=== PATIENT | female | born 1970 | race Caucasian/White ===

== ENCOUNTER → 2016-08-23 | Outpatient (CLI) | payer MEDICARE, OTHER | LOC: RAD 09:40 | PROVIDERS: ATTEND Orthopaedic Surgery Hand Surgery | DX: M54.12 Radiculopathy, cervical region (principal) | CPT/HCPCS: 72141 ==

== ENCOUNTER 2016-12-05 09:23 | Emergency (ER) | payer MEDICARE, OTHER ==
[2016-12-05 09:41] VITALS: BP 137/83
[2016-12-05] MEDS ORDERED: IPRATROPIUM/ALBUTEROL 0.5-2.5 MG/3 ML AMPUL NEB ONE (09:57)
--- NOTE | 2016-12-05 09:58 | ER Document Report ---
HPI - HPI Patient complains to provider of: sore throat, congestion Onset: Yesterday Onset/Duration: Gradual Quality of pain: Achy Pain Level: 2 Context: Presents complaining of sore throat, sinus pressure, and ear pain that started yesterday. Patient does report recent sick contacts in the household. Patient denies any fever. Associated Symptoms: Body/muscle aches, Nonproductive cough, Earache, Sinus pain /drainage, Sore throat. denies: Diarrhea, Fever Exacerbated by: Denies Relieved by: Denies Similar symptoms previously: Yes Recently seen / treated by doctor: No - ROS ROS below otherwise negative: Yes Systems Reviewed and Negative: Yes All other systems reviewed and negative - CONSTITUTIONAL Constitutional: REPORTS: Chills. DENIES: Fever - EENT EENT: REPORTS: Sore Throat, Ear Pain, Nasal Drainage-Clear, Congestion - NEURO Neurology: DENIES: Headache - RESPIRATORY Respiratory: REPORTS: Coughing. DENIES: Trouble Breathing - GASTROINTESTINAL Gastrointestinal: DENIES: Nausea - REPRODUCTIVE Reproductive: DENIES: : - DERM Skin Color: Normal, [place] Past Medical History - General Information source: Patient - Social History Smoking Status: Current Every Day Smoker Frequency of alcohol use: None Drug Abuse: None Occupation: none Lives with: Family Family History: Arthritis, DM, Hyperlipidemia Patient has suicidal ideation: No Patient has homicidal ideation: No - Past Medical History Cardiac Medical History: Reports: Hx Hypercholesterolemia Denies: Hx Heart Attack, Hx Hypertension Pulmonary Medical History: Reports: Hx Bronchitis, Hx Pneumonia Denies: Hx Asthma Neurological Medical History: Denies: Hx Cerebrovascular Accident, Hx Seizures Renal/ Medical History: Denies: Hx Peritoneal Dialysis GI Medical History: Denies: Hx Hepatitis, Hx Hiatal Hernia, Hx Ulcer Musculoskeltal Medical History: Reports Hx Arthritis, Reports Hx Musculoskeletal Deformity, Reports Hx Musculoskeletal Trauma Psychiatric Medical History: Reports: Hx Anxiety, Hx Depression, Hx Post Traumatic Stress Disorder Traumatic Medical History: Reports: Hx Fractures Infectious Medical History: Denies: Hx Hepatitis Past Surgical History: Reports: Hx Adenoidectomy, Hx Appendectomy, Hx Cholecystectomy, Hx Gynecologic Surgery - lap/ 7 d&c, hysterectomy, Hx Hysterectomy, Hx Orthopedic Surgery, Hx Tonsillectomy. Denies: Hx Mastectomy, Hx Open Heart Surgery, Hx Pacemaker - Immunizations Immunizations up to date: Yes Hx Diphtheria, Pertussis, Tetanus Vaccination: Yes Vertical Provider Document - CONSTITUTIONAL Agree With Documented VS: Yes General Appearance: WD/WN, No Apparent Distress - INFECTION CONTROL TRAVEL OUTSIDE OF THE [place] IN LAST 30 DAYS: No - HEENT HEENT: Atraumatic, Normal ENT Exam, Pharyngeal Tenderness. negative: Pharyngeal Exudate, Pharyngeal Erythema - NECK Neck: Normal Inspection, Supple. negative: Lymphadenopathy-Left, Lymphadenopathy-Right - RESPIRATORY Respiratory: No Respiratory Distress, Chest Non-Tender, Wheezing - faint scattered O2 Sat by Pulse Oximetry: 94 - CARDIOVASCULAR Cardiovascular: Regular Rate, Regular Rhythm, No Murmur - BACK Back: Normal Inspection - MUSCULOSKELETAL/EXTREMETIES Musculoskeletal/Extremeties: MAEW - NEURO Level of Consciousness: Awake, Alert, Appropriate Motor/Sensory: No Motor Deficit - DERM Integumentary: Warm, Dry, No Rash Course - Re-evaluation Re-evalutation: 12/05/16 10:49 wheezing resolved, pt with good air movement bilat. - Vital Signs Vital signs: Temp Pulse Resp BP Pulse Ox 98.4 F 90 21 H 137/83 H 94 12/05/16 09:31 12/05/16 09:31 12/05/16 09:31 12/05/16 09:31 12/05/16 09:31 Discharge - Discharge Clinical Impression: Sore throat, Wheezing Upper respiratory infection Qualifiers: URI type: unspecified URI Qualified Code(s): J06.9 - Acute upper respiratory infection, unspecified Condition: Stable Disposition: HOME, SELF-CARE Instructions: Upper Respiratory Illness ([facility]), Acetaminophen, Sore Throat ([facility]) , Inhaled Bronchodilators ([facility]) Additional Instructions: Return immediately for any new or worsening symptoms Followup with your primary care provider, call tomorrow to make a followup appointment Throat culture is pending, we will call if you need any different treatment use saline nasal spray over the counter to help with congestion symptoms may take mucinex over the counter as directed Prescriptions: Albuterol Sulfate [Ventolin Hfa] 2 puff IH Q4HP PRN #17 gm PRN Reason: Benzonatate [Tessalon Perle 100 mg Capsule] 100 mg PO Q8HP PRN #20 cap PRN Reason:
== END 2016-12-05 10:55 | disposition home or self-care (01) ==
LOC: ER 09:23
DX: J02.9 Acute pharyngitis, unspecified (principal); J06.9 Acute upper respiratory infection, unspecified; H92.09 Otalgia, unspecified ear; M79.1 Myalgia; R05 Cough; R06.2 Wheezing; J34.89 Other specified disorders of nose and nasal sinuses; R68.83 Chills (without fever); F17.200 Nicotine dependence, unspecified, uncomplicated; Z87.01 Personal history of pneumonia (recurrent)
CPT/HCPCS: 94640; 99283; 87070; 87880; A9270; J7620

== ENCOUNTER 2016-12-12 12:53 | Emergency (ER) | payer MEDICARE, OTHER ==
--- NOTE | 2016-12-12 13:42 | ER Document Report ---
ED Medical Screen (RME) - General Chief Complaint: Chest Pain Stated Complaint: CHEST PAIN Time Seen by Provider: 12/12/16 13:39 Notes: Patient says that she has been experiencing pain in the center of her anterior chest since last night. Today, she is having that pain as well as pain in her right nondenominational. She has been feeling lightheaded. Patient was diagnosed with sinus infection and an ear infection and a tooth infection and put on clindamycin 2 days ago. Denies nausea or vomiting has had some shortness of breath. No history of blood clots. PMH: Appendectomy, hysterectomy, cholecystectomy, various orthopedic surgeries. Patient is a cigarette smoker. TRAVEL OUTSIDE OF THE [place] IN LAST 30 DAYS: No - Related Data Allergies/Adverse Reactions: doxycycline [Doxycycline] Allergy (Severe, Verified 12/12/16 13:05) Anaphylaxis prednisone [Prednisone] Allergy (Severe, Verified 12/12/16 13:05) Pressure in chest, turn red & feel on fire from inside tetracycline [Tetracycline] Allergy (Severe, Verified 12/12/16 13:05) Anaphylaxis Past Medical History - Social History Chew tobacco use (# tins/day): Yes - 1/2 ppd Frequency of alcohol use: None Drug Abuse: None - Past Medical History Cardiac Medical History: Reports: Hx Hypercholesterolemia Denies: Hx Heart Attack, Hx Hypertension Pulmonary Medical History: Reports: Hx Bronchitis, Hx Pneumonia Denies: Hx Asthma Neurological Medical History: Denies: Hx Cerebrovascular Accident, Hx Seizures Renal/ Medical History: Denies: Hx Peritoneal Dialysis GI Medical History: Denies: Hx Hepatitis, Hx Hiatal Hernia, Hx Ulcer Musculoskeltal Medical History: Reports Hx Arthritis, Reports Hx Musculoskeletal Deformity, Reports Hx Musculoskeletal Trauma Psychiatric Medical History: Reports: Hx Anxiety, Hx Bipolar Disorder, Hx Depression, Hx Post Traumatic Stress Disorder Traumatic Medical History: Reports: Hx Fractures Infectious Medical History: Denies: Hx Hepatitis Past Surgical History: Reports: Hx Adenoidectomy, Hx Appendectomy, Hx Cholecystectomy, Hx Gynecologic Surgery - lap/ 7 d&c, hysterectomy, Hx Hysterectomy, Hx Orthopedic Surgery - carpal tunnel bilateral, Hx Tonsillectomy. Denies: Hx Mastectomy, Hx Open Heart Surgery, Hx Pacemaker - Immunizations Immunizations up to date: Yes Hx Diphtheria, Pertussis, Tetanus Vaccination: Yes Physical Exam - Vital signs Vitals: Temp Pulse Resp BP Pulse Ox 99.4 F 93 16 134/83 H 95 12/12/16 13:05 12/12/16 13:05 12/12/16 13:05 12/12/16 13:05 12/12/16 13:05 Course - Vital Signs Vital signs: Temp Pulse Resp BP Pulse Ox 99.4 F 93 16 134/83 H 95 12/12/16 13:05 12/12/16 13:05 12/12/16 13:05 12/12/16 13:05 12/12/16 13:05
[2016-12-12 14:27] LABS: APPEARANCE,URINE CLEAR; BILIRUBIN,URINE NEGATIVE (NEGATIVE); GLUCOSE, URINE NEGATIVE (NEGATIVE); KETONES,URINE NEGATIVE (NEGATIVE); LEUKOCYTE ESTERASE,URINE NEGATIVE (NEGATIVE); NITRITE,URINE NEGATIVE (NEGATIVE); PROTEIN,URINE NEGATIVE (NEGATIVE); URINE SPECIFIC GRAVITY 1.003; UROBILINOGEN,URINE NEGATIVE mg/dL (<2.0)
--- NOTE | 2016-12-12 14:29 | RADIOLOGY REPORT (SQ) ---
EXAM DESCRIPTION: CHEST PA/LAT COMPLETED DATE/TIME: 12/12/2016 2:20 pm REASON FOR STUDY: Chest pain COMPARISON: 02/26/2014 EXAM PARAMETERS: NUMBER OF VIEWS: two views TECHNIQUE: Digital Frontal and Lateral radiographic views of the chest acquired. RADIATION DOSE: NA LIMITATIONS: none FINDINGS: LUNGS AND PLEURA: The interstitial markings are slightly more prominent on the current kristopher dy compared to the earlier 1. There is no focal pneumonia. There is no pleural effusion or pulmonar y mass. MEDIASTINUM AND HILAR STRUCTURES: No masses or contour abnormalities. HEART AND VASCULAR STRUCTURES: Heart normal size. No evidence for failure. BONES: No acute findings. HARDWARE: None in the chest. OTHER: No other significant finding. IMPRESSION: There are mild interstitial changes with no acute cardiopulmonary disease. TECHNICAL DOCUMENTATION: JOB ID: [id number] [employer]- All Rights Reserved
[2016-12-12 14:53] LABS: ABSOLUTE BASOPHILS # (AUTO) 0.1 10^3/uL (0.0-0.2); ABSOLUTE EOSINOPHILS # (AUTO) 0.1 10^3/uL (0.0-0.6); ABSOLUTE LYMPHOCYTES (AUTO) 2.7 10^3/uL (0.5-4.7); ABSOLUTE MONOCYTES (AUTO) 0.8 10^3/uL (0.1-1.4); ABSOLUTE NEUT (AUTO) 11.8 10^3/uL (1.7-8.2); BASOPHILS % (AUTO) 0.8 % (0-2); EOSINOPHILS % (AUTO) 0.5 % (0-6); HEMATOCRIT 37.8 % (36.0-47.0); HEMOGLOBIN 12.5 g/dL (12.0-15.5); HGB HCT DIFFERENCE -0.3; LYMPHOCYTES % (AUTO) 17.4 % (13-45); MEAN CORPUSCULAR HEMOGLOBIN 30.5 pg (27.0-33.4); MEAN CORPUSCULAR VOLUME 92 fl (80-97); MONOCYTES % (AUTO) 5.4 % (3-13); RED CELL DISTRIBUTION WIDTH 12.5 % (11.5-14.0); SEGMENTED NEUTROPHILS % (AUTO) 75.9 % (42-78); WHITE BLOOD COUNT 15.5 10^3/uL (4.0-10.5)
[2016-12-12 15:10] LABS: ALANINE AMINOTRANSFERASE 55 U/L (9-52); ALBUMIN 4.3 g/dL (3.5-5.0); ALKALINE PHOSPHATASE 157 U/L (38-126); ANION GAP 15 (5-19); ASPARTATE AMINO TRANSFERASE 48 U/L (14-36); BILIRUBIN,DIRECT 0.4 mg/dL (0.0-0.4); BILIRUBIN,TOTAL 0.6 mg/dL (0.2-1.3); BLOOD UREA NITROGEN 4 mg/dL (7-20); CALCIUM 9.3 mg/dL (8.4-10.2); CARBON DIOXIDE 26 mmol/L (22-30); CHLORIDE 100 mmol/L (98-107); CREATININE RESULT 0.66 mg/dL (0.52-1.25); GLUCOSE 114 mg/dL (75-110); POTASSIUM 3.5 mmol/L (3.6-5.0)
[2016-12-12 15:22] LABS: CREATINE KINASE MB 0.35 ng/mL (<4.55); TROPONIN I < 0.012 ng/mL
[2016-12-12] MEDS ORDERED: POTASSIUM CHLORIDE 20 MEQ/15 ML UDCUP PO ONE (15:25)
[2016-12-12] MEDS ORDERED: METOCLOPRAMIDE HCL ORAL SOLN 10 MG/10 ML UDCUP PO ONE (15:25)
[2016-12-12] MEDS ORDERED: MAG HYDROX/AL HYDROX/SIMETH SUSP 30 ML UDCUP PO ONE (15:25)
[2016-12-12] MEDS ORDERED: LIDOCAINE 2% VISCOUS SOLN 20 ML UDCUP PO ONE (15:25)
--- NOTE | 2016-12-12 15:25 | ER Document Report ---
ED General - General Chief Complaint: Chest Pain Stated Complaint: CHEST PAIN Time Seen by Provider: 12/12/16 13:39 Mode of Arrival: Ambulatory Information source: Patient Notes: This is a 46-year-old female with a history of anxiety, arthritis who is been treated for a sinus infection/ear infection/dental caries with clindamycin for the past 2 days. Patient presents to the emergency room with epigastric discomfort for the past day. She denies any diarrhea. She denies any exertional shortness of breath or exertional chest pain. The patient does smoke a half a pack of cigarettes a day TRAVEL OUTSIDE OF THE [place] IN LAST 30 DAYS: No - HPI Onset: Just prior to arrival Onset/Duration: Gradual Quality of pain: Dull Severity: Moderate Pain Level: 2 Associated symptoms: denies: Chest pain, Shortness of breath Exacerbated by: Denies Relieved by: Denies Similar symptoms previously: Yes Recently seen / treated by doctor: No - Related Data Allergies/Adverse Reactions: doxycycline [Doxycycline] Allergy (Severe, Verified 12/12/16 13:05) Anaphylaxis prednisone [Prednisone] Allergy (Severe, Verified 12/12/16 13:05) Pressure in chest, turn red & feel on fire from inside tetracycline [Tetracycline] Allergy (Severe, Verified 12/12/16 13:05) Anaphylaxis Past Medical History - General Information source: Patient - Social History Smoking Status: Current Every Day Smoker Cigarette use (# per day): No Chew tobacco use (# tins/day): Yes - 1/2 ppd Frequency of alcohol use: None Drug Abuse: None Lives with: Family Family History: Arthritis, DM, Hyperlipidemia Patient has suicidal ideation: No Patient has homicidal ideation: No - Past Medical History Cardiac Medical History: Reports: Hx Hypercholesterolemia Denies: Hx Heart Attack, Hx Hypertension Pulmonary Medical History: Reports: Hx Bronchitis, Hx Pneumonia Denies: Hx Asthma Neurological Medical History: Denies: Hx Cerebrovascular Accident, Hx Seizures Renal/ Medical History: Denies: Hx Peritoneal Dialysis GI Medical History: Denies: Hx Hepatitis, Hx Hiatal Hernia, Hx Ulcer Musculoskeltal Medical History: Reports Hx Arthritis, Reports Hx Musculoskeletal Deformity, Reports Hx Musculoskeletal Trauma Psychiatric Medical History: Reports: Hx Anxiety, Hx Bipolar Disorder, Hx Depression, Hx Post Traumatic Stress Disorder Traumatic Medical History: Reports: Hx Fractures Infectious Medical History: Denies: Hx Hepatitis Past Surgical History: Reports: Hx Adenoidectomy, Hx Appendectomy, Hx Cholecystectomy, Hx Gynecologic Surgery - lap/ 7 d&c, hysterectomy, Hx Hysterectomy, Hx Orthopedic Surgery - carpal tunnel bilateral, Hx Tonsillectomy. Denies: Hx Mastectomy, Hx Open Heart Surgery, Hx Pacemaker - Immunizations Immunizations up to date: Yes Hx Diphtheria, Pertussis, Tetanus Vaccination: Yes Review of Systems - Review of Systems Constitutional: denies: Chills, Fever EENT: No symptoms reported Cardiovascular: No symptoms reported Respiratory: No symptoms reported Gastrointestinal: See HPI Genitourinary: No symptoms reported Female Genitourinary: No symptoms reported Musculoskeletal: No symptoms reported Skin: No symptoms reported Hematologic/Lymphatic: No symptoms reported Neurological/Psychological: No symptoms reported Physical Exam - Vital signs Vitals: Temp Pulse Resp BP Pulse Ox 99.4 F 93 16 134/83 H 95 12/12/16 13:05 12/12/16 13:05 12/12/16 13:05 12/12/16 13:05 12/12/16 13:05 Notes: Physical exam: GENERAL: 6-year-old female, alert and oriented 3, no acute distress HEAD: Atraumatic, normocephalic. EYES: Pupils equal round and reactive to light, extraocular movements intact, sclera anicteric, conjunctiva are normal. ENT: TMs normal, nares patent, oropharynx clear without exudates. Moist mucous membranes. NECK: Normal range of motion, supple without lymphadenopathy or JVD. LUNGS: Breath sounds clear to auscultation bilaterally and equal. No wheezes rales or rhonchi. HEART: Regular rate and rhythm without murmurs, rubs or gallops. ABDOMEN: Soft, normoactive bowel sounds. No tenderness to palpation. No guarding, no rebound. No masses appreciated. EXTREMITIES: Normal range of motion, no pitting or edema. No clubbing or cyanosis. NEUROLOGICAL: Cranial nerves II through XII grossly intact. Normal speech, normal gait. PSYCH: Normal mood, normal affect. SKIN: Warm, Dry, normal turgor, no rashes or lesions noted. Course - Re-evaluation Re-evalutation: 12/12/16 16:08 Note: The patient has been very comfortable (she is on the phone every time I walk in the room). Patient's abdomen is soft and nontender. These are not consistent with cardiac issues. She was recently placed on clindamycin and it may be irritation of the esophagus from that. The x-ray looks clear. She does have mild elevated LFTs. She does not have a gallbladder. She is on some medicines that can affect the liver enzymes (meloxicam, amitriptyline and cetirizine). I have recommended follow-up with her primary care doctor (Dr. Brady) and I will give her a copy of today's labs. She will need repeat labs in the next month for the liver enzymes. She does not drink alcohol and has not been taking Tylenol 12/12/16 22:48 - Vital Signs Vital signs: Temp Pulse Resp BP Pulse Ox 99.4 F 93 23 H 131/92 H 100 12/12/16 13:05 12/12/16 13:05 12/12/16 16:01 12/12/16 16:01 12/12/16 16:01 - Laboratory Result Diagrams: 12/12/16 14:35 12/12/16 14:35 Laboratory results interpreted by me: 12/12/16 12/12/16 14:35 14:35 WBC 15.5 H Absolute Neutrophils 11.8 H Potassium 3.5 L BUN 4 L Glucose 114 H AST 48 H ALT 55 H Alkaline Phosphatase 157 H Lipase 20.0 L - Diagnostic Test Radiology reviewed: Image reviewed, Reports reviewed - X-ray shows no obvious infiltrates - EKG Interpretation by Me Rate: Normal Rhythm: NSR - PG shows normal sinus rhythm with a ventricular rate of [address]-T wave change. There is no old EKG to compare Discharge - Discharge Clinical Impression: Chest wall pain, Elevated liver enzymes Condition: Stable Disposition: HOME, SELF-CARE Additional Instructions: As we discussed, your chest x-ray and kidney tests look good. You do have a mild elevation in your white blood count which is most likely due to the sinus infection for which are getting clindamycin You also have a mild elevation in your liver enzymes which could be from medicines (specifically meloxicam, amitriptyline, cetirizine). Plan to follow-up with Dr. Brady next week and bring a copy of today's labs with you when you go. In the meantime, current medicines, return to the emergency room if he starts developing chest pain, shortness of breath or worsening discomfort or you feel like you getting worse Referrals: DELISA BRADY MD [Primary Care Provider] - Follow up in 3-5 days
[2016-12-12 16:21] VITALS: BP 131/92
--- NOTE | 2016-12-13 03:59 | EKG REPORT ---
SEVERITY:- BORDERLINE ECG - SINUS RHYTHM BORDERLINE T ABNORMALITIES, DIFFUSE LEADS : Confirmed by: Alisha Wise MD 13-Dec-2016 03:58:23
== END 2016-12-12 16:23 | disposition home or self-care (01) ==
LOC: ER 12:53
DX: R07.89 Other chest pain (principal); R74.8 Abnormal levels of other serum enzymes; J32.9 Chronic sinusitis, unspecified; H66.90 Otitis media, unspecified, unspecified ear; K02.9 Dental caries, unspecified; F17.210 Nicotine dependence, cigarettes, uncomplicated; Z88.8 Allergy status to other drugs, medicaments and biological substances; Z87.892 Personal history of anaphylaxis; Z88.1 Allergy status to other antibiotic agents
CPT/HCPCS: 93005; 99285; 36415; 82553; 83690; 85025; 80053; 81001; 84484; 71020; 93010; J3490; A9270 ×2

== ENCOUNTER → 2016-12-26 | Outpatient (CLI) | payer MEDICARE, OTHER ==
--- NOTE | 2016-12-26 11:45 | RADIOLOGY REPORT (SQ) ---
EXAM DESCRIPTION: MRI LT UPPER JOINT WITHOUT COMPLETED DATE/TIME: 12/26/2016 10:59 am REASON FOR STUDY: PAIN IN LEFT SHOULDER M25.512 PAIN IN LEFT SHOULDER COMPARISON: None. TECHNIQUE: Left shoulder images acquired and stored on PACS. Multiplanar imaging to include fat sens itive sequences such as T1, water sensitive sequences such as FST2/STIR, cartilage sensitive sequence s such as FSPD/gradient-echo sequences. LIMITATIONS: None. FINDINGS: BONE MARROW AND CORTEX: No worrisome bone lesions or marrow replacement. No occult fractur es. JOINT OR BURSAL EFFUSION: No significant joint or bursal fluid. No suggestion of loose bodies. GLENO-HUMERAL ARTICULATION: Normal articulation. No subluxation. No cystic change. No osteophytes or cartilage loss. ACROMION AND AC JOINT: Type 2. Mild AC joint arthropathy. ROTATOR CUFF AND INTERVAL: Partial thickness articular surface tear of the supraspinatus tendon. The re is a intrasubstance tear of the supraspinatus musculotendinous junction. No full-thickness tear i s identified. No rotator interval tear. No rotator interval thickening to suggest adhesive capsulitis. LABRUM AND BICEPS LABRAL COMPLEX: Increased signal in the biceps labral complex. Distal biceps in normal location in bicipital groove. REMAINDER OF LABRUM AND IGHL : No gross tear or paralabral cyst formation. Labral evaluation is less than optimal without joint distention. No thickening of IGHL to suggest adhesive capsulitis. PERIARTICULAR AND ADJACENT SOFT TISSUES: No masses or abnormal nodes. OTHER: No other significant finding. IMPRESSION: 1. Partial-thickness tears of the supraspinatus. 2. Suspected type 1 SLAP tear. 3. AC joint arthropathy. TECHNICAL DOCUMENTATION: JOB ID: [id number] [employer]- All Rights Reserved
== END ==
LOC: RAD 09:58
PROVIDERS: ATTEND Neurological Surgery
DX: M25.512 Pain in left shoulder (principal)

== ENCOUNTER 2017-03-21 10:47 | Day surgery (SDC) | payer MEDICARE, OTHER ==
[2017-03-14 09:21] LABS: ABSOLUTE EOSINOPHILS # (AUTO) 0.1 10^3/uL (0.0-0.6); ABSOLUTE LYMPHOCYTES (AUTO) 2.3 10^3/uL (0.5-4.7); ABSOLUTE MONOCYTES (AUTO) 0.6 10^3/uL (0.1-1.4); ABSOLUTE NEUT (AUTO) 9.1 10^3/uL (1.7-8.2); BASOPHILS % (AUTO) 0.4 % (0-2); EOSINOPHILS % (AUTO) 1.2 % (0-6); HEMATOCRIT 35.9 % (36.0-47.0); HEMOGLOBIN 12.3 g/dL (12.0-15.5); LYMPHOCYTES % (AUTO) 18.8 % (13-45); MEAN CORPUSCULAR HEMOGLOBIN 30.2 pg (27.0-33.4); MEAN CORPUSCULAR HGB CONC 34.4 g/dL (32.0-36.0); MEAN CORPUSCULAR VOLUME 88 fl (80-97); MONOCYTES % (AUTO) 4.8 % (3-13); RED BLOOD COUNT 4.08 10^6/uL (3.72-5.28); RED CELL DISTRIBUTION WIDTH 12.9 % (11.5-14.0); SEGMENTED NEUTROPHILS % (AUTO) 74.8 % (42-78); WHITE BLOOD COUNT 12.2 10^3/uL (4.0-10.5)
[2017-03-14 09:23] LABS: APPEARANCE,URINE CLEAR; BILIRUBIN,URINE NEGATIVE (NEGATIVE); GLUCOSE, URINE NEGATIVE (NEGATIVE); KETONES,URINE NEGATIVE (NEGATIVE); LEUKOCYTE ESTERASE,URINE NEGATIVE (NEGATIVE); NITRITE,URINE NEGATIVE (NEGATIVE); PROTEIN,URINE NEGATIVE (NEGATIVE); URINE SPECIFIC GRAVITY 1.006
[2017-03-14 09:51] LABS: ANION GAP 12 (5-19); BLOOD UREA NITROGEN 5 mg/dL (7-20); CALCIUM 9.5 mg/dL (8.4-10.2); CARBON DIOXIDE 28 mmol/L (22-30); CHLORIDE 99 mmol/L (98-107); CREATININE RESULT 0.68 mg/dL (0.52-1.25); GLUCOSE 136 mg/dL (75-110); POTASSIUM 3.7 mmol/L (3.6-5.0)
--- NOTE | 2017-03-14 10:48 | RADIOLOGY REPORT (SQ) ---
EXAM DESCRIPTION: CHEST PA/LATERAL COMPLETED DATE/TIME: 03/14/2017 9:27 am REASON FOR STUDY: PRE OP COMPARISON: 12/12/2016 EXAM PARAMETERS: NUMBER OF VIEWS: two views TECHNIQUE: Digital Frontal and Lateral radiographic views of the chest acquired. RADIATION DOSE: NA LIMITATIONS: none FINDINGS: LUNGS AND PLEURA: There are mild chronic interstitial changes. There is no acute pulmonar y infiltrate or pleural effusion. There is no mass. MEDIASTINUM AND HILAR STRUCTURES: No masses or contour abnormalities. HEART AND VASCULAR STRUCTURES: Heart normal size. No evidence for failure. BONES: No acute findings. HARDWARE: None in the chest. OTHER: No other significant finding. IMPRESSION: Mild chronic lung changes with no acute cardiopulmonary disease. TECHNICAL DOCUMENTATION: JOB ID: [id number] [employer]- All Rights Reserved
--- NOTE | 2017-03-14 19:35 | EKG REPORT ---
SEVERITY:- ABNORMAL ECG - SINUS RHYTHM DIFFUSE NONSPECIFIC ST-T CHANGES : Confirmed by: Alfa Duarte MD 14-Mar-2017 19:34:52
[~2017-03-21 10:47] MED LIST: CEFAZOLIN 2 GM/D5W RTU 2 GM/50 ML RTUPB IV PRN; LACTATED RINGERS 1000 ML IV PRN; LIDOCAINE 0.5% INJ-PF (5 MG/ML) 50 ML SDV SUBCUT PRN
[2017-03-21] MEDS ORDERED: EPINEPHRINE INJ/PF 1 MG/1 ML AMPULE ONE (11:20)
[2017-03-21] MEDS ORDERED: BUPIVACAINE HCL 0.5 % INJ/PF 30 ML SDV ONE (11:20)
[2017-03-21] MEDS ORDERED: MIDAZOLAM 2 MG/2 ML INJ ONE ×2 (11:22→11:57)
[2017-03-21] MEDS ORDERED: PROPOFOL INJ 200 MG/20 ML VIAL IV ONE (11:22)
[2017-03-21] MEDS ORDERED: ACETAMINOPHEN 100 ML IV ONE (11:22)
[2017-03-21] MEDS ORDERED: FENTANYL CITRATE INJ/PF 100 MCG/2 ML AMPUL ONE (11:22)
[2017-03-21] MEDS ORDERED: FENTANYL CITRATE INJ/PF 250 MCG/5 ML AMPULE ONE (11:22)
[2017-03-21] MEDS ORDERED: MORPHINE SULFATE 10 MG/ML INJ ONE (11:23)
[2017-03-21] MEDS ORDERED: SCOPOLAMINE HYDROBROMIDE 1.5 MG PATCH.TD72 TD PRN (11:49)
[2017-03-21] MEDS ORDERED: FAMOTIDINE INJ/PF 20 MG/2 ML SDV IV ONE ×2 (11:56→12:30)
[2017-03-21] MEDS ORDERED: ALBUTEROL SULFATE 0.083% NEB 2.5 MG/3 ML AMPUL NEB ONE ×2 (11:57→12:30)
[2017-03-21] MEDS ORDERED: NEOSTIGMINE METHYLSULFATE 10 MG/10 ML VIAL ONE (13:22)
[2017-03-21] MEDS ORDERED: ROCURONIUM BROMIDE INJ 50 MG/5 ML VIAL IV ONE (13:22)
[2017-03-21] MEDS ORDERED: GLYCOPYRROLATE INJ 0.4 MG/2 ML VIAL ONE (13:22)
[2017-03-21] MEDS ORDERED: LIDOCAINE 2% INJ-PF (20 MG/ML) 10 ML AMPUL ONE (13:22)
[2017-03-21] MEDS ORDERED: SUCCINYLCHOLINE CHLORIDE INJ 200 MG/10 ML VIAL ONE (13:22)
[2017-03-21] MEDS ORDERED: ONDANSETRON HCL INJ/PF 4 MG/2 ML SDV ONE (13:22)
[2017-03-21] MEDS ORDERED: KETOROLAC TROMETHAMINE 60 MG/2 ML SDV ONE (13:22)
[2017-03-21] MEDS ORDERED: MEPERIDINE HCL/PF INJ 25 MG/1 ML DISP.SYRIN IV PRN (14:15)
[2017-03-21] MEDS ORDERED: FENTANYL CITRATE INJ/PF 100 MCG/2 ML AMPUL IV PRN ×3 (14:15)
[2017-03-21] MEDS ORDERED: DIPHENHYDRAMINE HCL 50 MG/ML VIAL IV PRN (14:15)
[2017-03-21] MEDS ORDERED: PROMETHAZINE HCL INJ 25 MG/1 ML VIAL IV PRN ×2 (14:15)
[2017-03-21] MEDS ORDERED: MORPHINE SULFATE 10 MG/ML INJ IV PRN (14:15)
[2017-03-21] MEDS ORDERED: OXYCODONE-ACETAMINOPHEN 5-325 MG TABLET PO PRN ×2 (14:15)
[2017-03-21] MEDS: FENTANYL CITRATE INJ/PF 100 MCG/2 ML AMPUL ONE ×4 (16:03→16:25)
--- NOTE | 2017-03-21 16:17 | Operative Report ---
Operative Report DATE OF SURGERY: 03/21/17 PREOPERATIVE DIAGNOSIS: Partial thickness rotator cuff left shoulder POSTOPERATIVE DIAGNOSIS: Left shoulder tendinitis and bursitis with impingement. type II SLAP tear OPERATION: Left shoulder arthroscopy with labral debridement and decompression with acromioplasty. Subpectoralis biceps tenodesis SURGEON: ALLI STEARNS ANESTHESIA: GA TISSUE REMOVED OR ALTERED: Portion of the long head of the biceps COMPLICATIONS: None ESTIMATED BLOOD LOSS: 25 mL INTRAOPERATIVE FINDINGS: As above PROCEDURE: Patient received 1 g of IV Ancef. Patient then was taken to the operating room where she was induced and intubated in supine position. Patient then was secured in the beachchair position where the left shoulder was prepped and draped in a normal surgical fashion. Was done identifying the left shoulder as the correct site. Spinal needle was used to insert into the glenohumeral joint and I proceeded to distend the capsule with sterile saline solution. 11 blade was used to establish my posterior portal and I introduced the cannula into the glenohumeral joint. Once I got return of fluid I confirm proper placement and placed a camera. Under direct visualization I placed a spinal needle marked my anterior portal and used an 11 blade to establish a. I placed a purple cannula and then through the cannula was able to probe and proceed with my diagnostic scope which show pristine glenohumeral joint cartilage patient had a [place] type complex with erythema and redirected the scope to the subacromial space. Synovitis of the anterior shoulder. Patient had a type II SLAP tear. To my attention to the footprint of the rotator cuff which showed to be intact with no partial tearing. At this point through the anterior portal I use arthroscopic scissors to do a tenotomy of the long head of the biceps at the attachment of the glenoid superiorly. I proceeded then to remove fluid from the shoulder joint and redirected the scope to the subacromial space. A lateral portal site was established and between radiofrequency ablator and 4.0 mm shaver was bursectomy. Of note the patient has significant bleeding from every portion. Patient had explained the rotator cuff and significant bursitis. There is no tear in the dorsal aspect of the rotator cuff. I proceeded then to use a 5.5 bur and did a acromioplasty. Took before and after pictures proceeded to address subpectoralis tenodesis portion of the case. A 1 inch incision was done just medial to the axillary fold dissection was done with Metzenbaum scissors and hemostasis was obtained with the Bovie. Able to then cut the fascia overlying the biceps and then hooked the long head of biceps with a 90 clamp. Was able then to use a fiber loop and suture 2 cm from the muscular tendinous junction and cut the remaining tendon. I used 2 Homans to reflect tissue on the side of the humerus. I used a 4 mm spade tip guidepin then to do my proximal cortex drilling into the intramedullary canal of the humerus. I fed the 2 ends of the fiber wire into the biceps tenodesis button as recommended by the manufacturing company. Pulled out the guidepin and then proceeded to insert the button into the intramedullary canal. I was able to successfully flipped the button and after releasing securing the biceps. I used a free needle the comes in the care and pass one of the FiberWire ends through the biceps one more time to further secure it. Once I since the biceps onto the humeral cortex I then proceeded to go several half hitch knots for added fixation. Instruments were removed and used bulb irrigation to wash the tissue. I proceeded to approximate the tissue with 2-0 Vicryl and close the skin with 3-0 nylon. The 2 of the portal sites were closed with 3-0 nylon as well. I placed Xeroform over the incisions and covered it with 4 x 4 dressing and ABD pads. Secured the dressing with Medipore tape. Patient's arm was placed in the sling and the patient then was placed in supine position extubated and sent to PACU in stable condition.
--- NOTE | 2017-03-21 16:20 | PDOC DISCHARGE SUMMARY ---
Discharge Summary (SDC) - Discharge Final Diagnosis: Left shoulder arthroscopy debridement and acromioplasty as well as subpectoralis biceps tenodesis Date of Surgery: 03/21/17 Discharge Date: 03/21/17 Condition: Good Treatment or Instructions: Patient is instructed to follow up in 10-14 days. Patient instructed to remove dressing in 4 days then can shower and apply Band- Aids as needed. Patient to wear sling for comfort but okay to remove for shower and pendulum exercises. Pendulum exercises are instructed to be done 3 times a day ideally with breakfast, lunch, dinners and showers. Patient instructed to call if there is any signs of redness or drainage fevers or chills. Prescriptions: Oxycodone HCl/Acetaminophen [Percocet 5-325 mg Tablet] 1 - 2 tab PO ASDIR PRN # 60 tablet PRN Reason: Referrals: DELISA BRADY MD [Primary Care Provider] - Discharge Diet: As Tolerated Respiratory Treatments at Home: Deep Breathing/Coughing Discharge Activity: No Driving, No Lifting/Push/Pulling Home Care Assistance: None Needed Report the Following to Your Physician Immediately: Shortness of Breath, Vomiting, Increase in Pain, Fever over 101 Degrees, Unusual Bleeding, Redness, Swelling, Warmth, Increased Soreness, Drainage-Yellow, Drainage-Greene, Drainage- Green, Drainage-Foul Smelling
[2017-03-21] MEDS ORDERED: OXYCODONE-ACETAMINOPHEN 5-325 MG TABLET ONE (17:34)
[2017-03-21 18:41] VITALS: BP 110/76
== END 2017-03-21 18:43 | disposition home or self-care (01) ==
LOC: OROUT 10:47
PROVIDERS: ATTEND Orthopaedic Surgery
PROC: 0LM30ZZ Reattachment of Right Upper Arm Tendon, Open Approach (ICD-10-PCS; 2017-03-21)
PROC: 0RBK4ZZ Excision of Left Shoulder Joint, Percutaneous Endoscopic Approach (ICD-10-PCS; principal; 2017-03-21 13:00)
DX: S43.432A Superior glenoid labrum lesion of left shoulder, initial encounter (principal); X58.XXXA Exposure to other specified factors, initial encounter; M75.52 Bursitis of left shoulder; M75.42 Impingement syndrome of left shoulder; E78.5 Hyperlipidemia, unspecified; K21.9 Gastro-esophageal reflux disease without esophagitis; F20.9 Schizophrenia, unspecified; E66.9 Obesity, unspecified; Z68.32 Body mass index [BMI] 32.0-32.9, adult
CPT/HCPCS: 24340; 93005; 36415; 85025; 80048; 81001; 71020; 93010; 29822; C1713; J2250; J3490 ×3; J0171; J1885; J3010 ×2; J2270; A9270 ×2; J0330; J2405; J2704; S0028; J0690; J0131; 1630

== ENCOUNTER → 2017-07-05 | Outpatient (CLI) | payer MEDICARE, OTHER ==
--- NOTE | 2017-07-05 19:12 | RADIOLOGY REPORT (SQ) ---
EXAM DESCRIPTION: MRI CERVICAL SPINE WITHOUT COMPLETED DATE/TIME: 07/05/2017 11:04 am REASON FOR STUDY: CERVICAL RADICULOPATHY M54.12 RADICULOPATHY, CERVICAL REGION COMPARISON: 08/23/2016 TECHNIQUE: Sagittal and Axial imaging includes T1, T2, STIR and gradient echo sequences. LIMITATIONS: None. FINDINGS: ALIGNMENT: Reversal of normal cervical lordotic curve. VERTEBRAE: Intact. BONE MARROW: Mild reactive endplate changes C5-6. DISCS: Mild loss of height and T2 signal C5-6. HARDWARE: None in the spine. CORD AND BASE OF BRAIN: Normal in size and signal intensity. SOFT TISSUES: No soft tissue masses. C1-C2: No significant spinal stenosis. C2-C3: No significant spinal stenosis or exit foraminal stenosis. C3-C4: No significant spinal stenosis or exit foraminal stenosis. C4-C5: No significant spinal stenosis or exit foraminal stenosis. C5-C6: Central right paracentral soft disc protrusion with flattening of the central and rightward th ecal sac. Mild narrowing of the exit foramina. Similar to previous. C6-C7: No significant spinal stenosis or exit foraminal stenosis. C7-T1: No significant spinal stenosis or exit foraminal stenosis. UPPER THORACIC: Incompletely imaged. No significant spinal stenosis or exit foraminal stenosis. OTHER: No other significant finding. IMPRESSION: Central right paracentral soft disc protrusion C5-6 with flattening of the central and r ightward thecal sac and mild narrowing of the exit foramina. Similar to previous. TECHNICAL DOCUMENTATION: JOB ID: [id number] [employer]- All Rights Reserved
== END ==
LOC: RAD 10:08
PROVIDERS: ATTEND Neurological Surgery
DX: M54.12 Radiculopathy, cervical region (principal)
CPT/HCPCS: 72141

== ENCOUNTER → 2017-10-02 | Outpatient (CLI) | payer MEDICARE, OTHER ==
--- NOTE | 2017-10-02 10:43 | RADIOLOGY REPORT (SQ) ---
EXAM DESCRIPTION: CERV SP 3 VIEW OR LESS COMPLETED DATE/TIME: 10/02/2017 8:25 am REASON FOR STUDY: CERVICAL RADICULOPATHY (FLEX/EXT ONLY) COMPARISON: None. NUMBER OF VIEWS: Two views TECHNIQUE: Lateral flexion and extension views LIMITATIONS: None. FINDINGS: MINERALIZATION: Normal. ALIGNMENT: Anatomic. FLEXION/EXTENSION: No instability. VERTEBRAE: Vertebral bodies of normal height. DISCS: Disc spacer is identified at the C5-C6 level. No significant disc space reduction is seen. LATERAL AND POSTERIOR ELEMENTS: Facets, lateral masses, and spinous processes without significant fin dings. HARDWARE: Anterior orthopedic plate transfixed by orthopedic screws is identified at the C5-C6 level. SOFT TISSUES: No masses or calcifications. Lung apices clear. OTHER: No other significant finding. IMPRESSION: Postsurgical changes as noted above NO INSTABILITY ON FLEXION/EXTENSION. TECHNICAL DOCUMENTATION: JOB ID: [id number] [employer]- All Rights Reserved Reading location - IP/workstation name: [facility]
== END ==
LOC: RAD 08:06
PROVIDERS: ATTEND Specialist
DX: M54.12 Radiculopathy, cervical region (principal)
CPT/HCPCS: 72040

== ENCOUNTER → 2017-10-27 | Outpatient (CLI) | payer MEDICARE, OTHER ==
--- NOTE | 2017-10-29 10:32 | WOMENS IMAGING REPORT ---
EXAM DESCRIPTION: BILAT SCREENING MAMMO W/CAD COMPLETED DATE/TIME: 10/27/2017 11:12 am REASON FOR STUDY: ROUTINE SCREENING;Z12.31 Z12.31 ENCNTR SCREEN MAMMOGRAM FOR MALIGNANT NEOPLASM OF COOKIE COMPARISON: None. TECHNIQUE: Standard craniocaudal and mediolateral oblique views of each breast recorded using digita l acquisition. LIMITATIONS: None. FINDINGS: RIGHT BREAST MASSES: Small mass upper outer quadrant 9 o'clock about 10 cm from the nipple. CALCIFICATIONS: No new or suspicious calcifications. ARCHITECTURAL DISTORTION: None. DEVELOPING DENSITY: None. ASYMMETRY: None noted. OTHER: No other significant findings. LEFT BREAST MASSES: No suspicious masses. CALCIFICATIONS: No new or suspicious calcifications. ARCHITECTURAL DISTORTION: None. DEVELOPING DENSITY: None. ASYMMETRY: None noted. OTHER: No other significant findings. Read with the assistance of CAD. .[facility] - R2 Cenova Version 1.3 .[facility] Imaging - R2 Cenova Version 1.3 .[facility] - R2 Cenova Version 2.4 .[facility] [place] - R2 Cenova Version 2.4 .[facility] - R2 Assistant Softball Coach Version 9.2 IMPRESSION: Small cyst or lymph node right breast. BREAST DENSITY: a. The breasts are almost entirely fatty. BIRAD: 0 Incomplete: Needs Additional Imaging Evaluation and/or prior Mammograms for Comparison. RECOMMENDATION: RECOMMENDED FOLLOW-UP: Ultrasound of the right breast. The patient will be contacted for additional imaging. COMMENT: The patient has been notified of the results by letter per SA requirements. Additional no tification policies are in place for contacting patient with suspicious or incomplete findings. Quality ID #[id number]: The [employer] recommends an annual screening mammogram for women aged 40 years or over. This facility utilizes a reminder system to ensure that all patients receive reminder letters, and/or direct phone calls for appointments. This includes reminders for routine scr eening mammograms, diagnostic mammograms, or other Breast Imaging Interventions when appropriate. Th is patient will be placed in the appropriate reminder system. The [employer] (ACR) has developed recommendations for screening MRI of the breast s in certain patient populations, to be used in conjunction with mammography. Breast MRI surveillanc e may be appropriate for women with more than 20% lifetime risk of developing breast cancer as deter mined by genetic testing, significant family history of the disease, or history of mantle radiation f or Hodgkins Disease. ACR Practice Guidelines 2008. TECHNICAL DOCUMENTATION: FINDING NUMBER: (1) ASSESSMENT: (1) JOB ID: [id number] [employer]- All Rights Reserved Reading location - IP/workstation name: [email or web address] [place]
== END ==
LOC: WI 10:50
PROVIDERS: ATTEND Family Medicine
DX: Z12.31 Encounter for screening mammogram for malignant neoplasm of breast (principal); N60.01 Solitary cyst of right breast
CPT/HCPCS: 77067

== ENCOUNTER → 2017-11-03 | Outpatient (CLI) | payer MEDICARE, OTHER ==
--- NOTE | 2017-11-05 07:42 | WOMENS IMAGING REPORT ---
EXAM DESCRIPTION: U/S BREAST UNILAT LIMITED COMPLETED DATE/TIME: 11/03/2017 9:57 am REASON FOR STUDY: BREAST LUMP N63.10 UNSPECIFIED LUMP IN THE RIGHT BREAST, UNSPECIFIED BARBARA COMPARISON: Mammograms 10/27/2017 TECHNIQUE: Real-time and static grayscale imaging performed of the right breast targeted to the area of mammographic concern. Selected color Doppler images recorded. LIMITATIONS: None. FINDINGS: In the lower outer quadrant right breast, 8 to 9 o'clock position right breast at about 10 cm from the nipple, a intramammary lymph node is present measuring 5 x 4 mm in size. This correlate s with the mammographic findings on 10/27/2017. This is benign and requires no further follow-up IMPRESSION: Benign intramammary lymph node right breast 8 to 9 o'clock position. BIRAD: 2 Benign findings. RECOMMENDATION: RECOMMENDED FOLLOW-UP: Please continue yearly bilateral mammography/ tomosynthesis i n October 2018 COMMENT: Patient notified by letter The [employer] (ACR) has developed recommendations for screening MRI of the breast s in certain patient populations, to be used in conjunction with mammography. Breast MRI surveillanc e may be appropriate for women with more than 20% lifetime risk of developing breast cancer as deter mined by genetic testing, significant family history of the disease, or history of mantle radiation f or Hodgkins Disease. ACR Practice Guidelines 2007. TECHNICAL DOCUMENTATION: JOB ID: [id number] [employer]- All Rights Reserved Reading location - IP/workstation name: [email or web address]
== END ==
LOC: WI 09:05
PROVIDERS: ATTEND Physician Assistant Medical
DX: N63.13 Unspecified lump in the right breast, lower outer quadrant (principal)
CPT/HCPCS: 76642

== ENCOUNTER 2017-11-26 17:19 | Emergency (ER) | payer MEDICARE, OTHER ==
[2017-11-26 17:25] VITALS: BP 127/73
[2017-11-26] MEDS ORDERED: IBUPROFEN 800 MG TABLET PO ONE (18:00)
--- NOTE | 2017-11-26 18:03 | ER Document Report ---
ED Neck/Back Problem - General Chief Complaint: Back Pain Stated Complaint: RIGHT SIDE, BACK PAIN Time Seen by Provider: 11/26/17 17:50 Mode of Arrival: Ambulatory Information source: Patient Notes: 87-year-old female presented ED for complaint of back pain to her lower back. She states she was sitting on her knees putting away groceries when she reached over to grab a 10 pound bag of sugar and felt like something pulled. She has a history of chronic back pain. She states that she did not fall or do any other injuries to her back. There is no bony tenderness. Patient is able to ambulate with a even steady gait. TRAVEL OUTSIDE OF THE [place] IN LAST 30 DAYS: No - HPI Patient complains to provider of: Lower back Onset: This afternoon Where: Home Onset: Chronic Timing: Still present Quality of pain: Burning, Sharp Severity: Moderate Pain Level: 3 Context: Other - States she was sitting on her knees when she name forward to picking tech a 10 pound bag of sugar when she all of a sudden had severe back pain Recent injury: No Associated symptoms: Like prior neck/back pain, Lower back pain. denies: Constipation, Fever, Incontinence, Motor loss, Numbness/tingling, Radiation to leg, Sensory loss, Sweaty, Unable to urinate, Upper back pain Exacerbated by: Movement of trunk Relieved by: Nothing Similar symptoms previously: Yes Recently seen / treated by doctor: No - Related Data Allergies/Adverse Reactions: doxycycline [Doxycycline] Allergy (Severe, Verified 11/26/17 17:21) Anaphylaxis prednisone [Prednisone] Allergy (Severe, Verified 11/26/17 17:21) Pressure in chest, turn red & feel on fire from inside tetracycline [Tetracycline] Allergy (Severe, Verified 11/26/17 17:21) Anaphylaxis Past Medical History - General Information source: Patient - Social History Smoking Status: Current Every Day Smoker Cigarette use (# per day): Yes - Have a pack per day Chew tobacco use (# tins/day): No Smoking Education Provided: Yes - 4 minutes Frequency of alcohol use: None Drug Abuse: None Lives with: Family Family History: Arthritis, DM, Hyperlipidemia. denies: CAD, COPD, CVA, Hypertension, Malignancy, Thyroid Disfunction Patient has suicidal ideation: No Patient has homicidal ideation: No - Past Medical History Cardiac Medical History: Reports: Hx Hypercholesterolemia Pulmonary Medical History: Reports: Hx Bronchitis, Hx Pneumonia EENT Medical History: Reports: None Neurological Medical History: Reports: None Endocrine Medical History: Reports: None Renal/ Medical History: Reports: None Malignancy Medical History: Reports: None GI Medical History: Reports: None Musculoskeltal Medical History: Reports Hx Arthritis, Reports Hx Musculoskeletal Deformity, Reports Hx Musculoskeletal Trauma Skin Medical History: Reports None Psychiatric Medical History: Reports: Hx Anxiety, Hx Bipolar Disorder, Hx Depression, Hx Post Traumatic Stress Disorder Traumatic Medical History: Reports: Hx Fractures Infectious Medical History: Reports: None Past Surgical History: Reports: Hx Adenoidectomy, Hx Appendectomy, Hx Cholecystectomy, Hx Dilation and Curettage - 7, Hx Gynecologic Surgery - Exploratory laparotomy looking for ovarian cyst, Hx Hysterectomy, Hx Oral Surgery - Dental surgery for most of her teeth, Hx Orthopedic Surgery - carpal tunnel bilateral, back surgery 2 next surgery 1 right foot surgery, Hx Tonsillectomy. Denies: Hx Mastectomy, Hx Open Heart Surgery, Hx Pacemaker - Immunizations Immunizations up to date: Yes Hx Diphtheria, Pertussis, Tetanus Vaccination: Yes Review of Systems - Review of Systems Constitutional: No symptoms reported EENT: No symptoms reported Cardiovascular: No symptoms reported Respiratory: No symptoms reported Gastrointestinal: No symptoms reported Genitourinary: No symptoms reported Female Genitourinary: No symptoms reported Musculoskeletal: Back pain, Muscle pain, Muscle stiffness Skin: No symptoms reported Hematologic/Lymphatic: No symptoms reported Neurological/Psychological: No symptoms reported -: Yes All other systems reviewed and negative Physical Exam - Vital signs Vitals: Temp Pulse Resp BP Pulse Ox 98.8 F 91 16 127/73 H 97 11/26/17 17:23 11/26/17 17:23 11/26/17 17:23 11/26/17 17:23 11/26/17 17:23 Interpretation: Normal - General General appearance: Appears well, Alert - HEENT Head: Normocephalic, Atraumatic Eyes: Normal Pupils: PERRL - Respiratory Respiratory status: No respiratory distress Chest status: Nontender Breath sounds: Normal Chest palpation: Normal - Cardiovascular Rhythm: Regular Heart sounds: Normal auscultation Murmur: No - Abdominal Inspection: Normal Distension: No distension Bowel sounds: Normal Tenderness: Nontender Organomegaly: No organomegaly - Back Back: Normal, Tender, Scars - Multiple previous surgeries. No: Deformity/step- off, CVA tenderness, Vertebra tenderness, Scoliosis, Wounds - Extremities General upper extremity: Normal inspection, Nontender, Normal color, Normal ROM , Normal temperature General lower extremity: Normal inspection, Nontender, Normal color, Normal ROM , Normal temperature, Normal weight bearing. No: Denis's sign - Neurological Neuro grossly intact: Yes Cognition: Normal Orientation: AAOx4 [place] Coma Scale Eye Opening: Spontaneous [place] Coma Scale Verbal: Oriented Eileen Coma Scale Motor: Obeys Commands Eileen Coma Scale Total: 15 Speech: Normal Cranial nerves: Normal Motor strength normal: LUE, RUE, LLE, RLE Additional motor exam normals: Equal eyeglass inspector Babinski reflex: Normal (flexor plantar) Sensory: Normal Biceps - Reflex grade: 2 = Normal Triceps - Reflex grade: 2 = Normal Brachioradialis - Reflex grade: 2 = Normal Knee - Reflex grade: 2 = Normal Ankle - Reflex grade: 2 = Normal - Psychological Associated symptoms: Normal affect, Normal mood - Skin Skin Temperature: Warm Skin Moisture: Dry Skin Color: Normal Course - Re-evaluation Re-evalutation: 11/26/17 21:25 Patient was treated with ibuprofen in the emergency room and discharged home with instructions to use ibuprofen or [id number] viscous lidocaine patches. After performing a Medical Screening Examination, I estimate there is LOW risk for EXPANDING OR RUPTURED ABDOMINAL AORTIC ANEURYSM, CAUDA EQUINA SYNDROME, EPIDURAL MASS LESION, or HERNIATED DISK CAUSING SEVERE SPINAL STENOSIS , thus I consider the discharge disposition reasonable. I have reevaluated this patient multiple times and no significant life threatening changes are noted. The patient and I have discussed the diagnosis and risks, and we agree with discharging home and close follow-up. We also discussed returning to the Emergency Department immediately if new or worsening symptoms occur with the understanding that symptoms and presentations can change. We have discussed the symptoms which are most concerning (e.g., saddle anesthesia, urinary or bowel incontinence or retention, changing or worsening pain) that necessitate immediate return. - Vital Signs Vital signs: Temp Pulse Resp BP Pulse Ox 98.8 F 91 16 127/73 H 97 11/26/17 17:23 11/26/17 17:23 11/26/17 17:23 11/26/17 17:23 11/26/17 17:23 Discharge - Discharge Clinical Impression: Acute exacerbation of chronic low back pain Chronic low back pain with bilateral sciatica Qualifiers: Back pain laterality: bilateral Qualified Code(s): M54.42 - Lumbago with sciatica, left side Condition: Stable Disposition: HOME, SELF-CARE Additional Instructions: LOW BACK PAIN: Three out of every four people will have an episode of disabling back pain during their lifetime. Most commonly the pain is due to straining of the muscles and ligaments in the low back. Usual treatment includes: (1) Rest on a firm surface. Avoid lying on your stomach. (2) Ice pack the painful area. After a few days, gentle heat may be used intermittently to relax the area, or ice packs can be continued. (3) Medication may be needed -- muscle relaxers and antiinflammatory medicines are commonly used. (4) As the back improves, exercises are prescribed to strengthen the back and abdominal muscles. Your doctor will advise you on the proper care for your back at each stage in your recovery. You may be better in a few days -- or healing may take several weeks. If new symptoms of a "herniated disc" (radiation of pain, numbness, or tingling down the back of the leg or weakness in the leg) occur, you should be re-examined. Further testing may be necessary. MUSCLE RELAXERS: Muscle relaxing medications are usually prescribed for acute muscle spasm or injury to the neck and back. They are often combined with antiinflammatory pain medication for increased relief. You may stop the muscle relaxer when the pain and stiffness have improved. Start the medication again if spasms recur. Muscle relaxers may cause drowsiness, especially with the first dose. Do not operate machinery or drive while under the effects of the medication. Most muscle relaxers last up to 24 hours. Do not combine the medication with alcohol. ICE PACKS: Apply ice packs frequently against the painful area. Many different schedules are recommended, such as "20 minutes on, 20 minutes off" or "one hour ice, two hours rest." If you need to work, you may need to go longer between ice treatments. You should plan to have the area ice packed AT LEAST one fourth of the time. The ice should be applied over the wrap, tape, or splint, or over a layer of cloth -- not directly against the skin. Some ice bags have a built-in cloth and can be put directly on the skin. WARM PACKS: After approximately two days, apply gentle heat (such as a heating pad or hot water bottle) for about 20 to 30 minutes about every two hours -- at least four times daily. Warmth and elevation will help you make a more rapid recovery , and will ease the pain considerably. Do not use HOT heat, and never apply heat for longer than 30 minutes. The continuous heat can invisibly damage skin and muscles -- even when no burn is seen on the surface. Damaged muscles can make you MORE sore. Stretching Exercises for the Back The physician has recommended that you begin stretching exercises for your back. These are often used even while the back is painful. However, you should notify the physician if the activities seem to increase your pain. PELVIC TILT: Lie flat on your back with knees bent. Tighten your stomach and buttock muscles so it flattens your lower back against the floor. Hold 10 seconds. Repeat 10 times, twice daily. KNEE RAISE: Lying on the back with knees bent, raise one knee to your chest, then the other. Hold both knees against the chest 10 seconds, then lower one knee at a time. Repeat 10 times, twice daily. PARTIAL TRUNK RAISE: Lie face down, arms at your sides. Keeping your waist on the floor, use your arms raise your chest up. Support yourself on your elbows for 30 seconds. Repeat twice daily, increasing the time to two minutes as you recover. FOLLOW-UP CARE: If you have been referred to a physician for follow-up care, call the physician s office for an appointment as you were instructed or within the next two days. If you experience worsening or a significant change in your symptoms, notify the physician immediately or return to the Emergency Department at any time for re-evaluation. Prescriptions: Cyclobenzaprine HCl [Flexeril 10 mg Tablet] 10 mg PO TIDP PRN #15 tab PRN Reason: Forms: Elevated Blood Pressure, Smoking Cessation Education Referrals: HADLEY KAM PA-C [Primary Care Provider] - Follow up tomorrow
== END 2017-11-26 18:09 | disposition home or self-care (01) ==
LOC: ER 17:19
DX: M54.42 Lumbago with sciatica, left side (principal); G89.29 Other chronic pain; F17.210 Nicotine dependence, cigarettes, uncomplicated; E78.00 Pure hypercholesterolemia, unspecified; Z90.49 Acquired absence of other specified parts of digestive tract
CPT/HCPCS: 99283; 99406

== ENCOUNTER → 2017-11-29 | Outpatient (CLI) | payer MEDICARE, OTHER ==
--- NOTE | 2017-11-29 13:26 | RADIOLOGY REPORT (SQ) ---
EXAM DESCRIPTION: CERV SP 3 VIEW OR LESS COMPLETED DATE/TIME: 11/29/2017 1:11 pm REASON FOR STUDY: CERVICAL RADICULOPATHY COMPARISON: 10/02/2017. FINDINGS: 3 upright lateral views of the cervical spine, flexion and extension. C5-6 anterior instr umentation, intact. Normal alignment. No abnormal motion. No suspicious soft tissue swelling. TECHNICAL DOCUMENTATION: JOB ID: [id number] Reading location - IP/workstation name: [email or web address]
== END ==
LOC: RAD 12:54
PROVIDERS: ATTEND Specialist
DX: M54.12 Radiculopathy, cervical region (principal)
CPT/HCPCS: 72040

== ENCOUNTER → 2017-12-06 | Outpatient (CLI) | payer MEDICARE, OTHER ==
--- NOTE | 2017-12-08 07:38 | RADIOLOGY REPORT (SQ) ---
EXAM DESCRIPTION: MRI CERVICAL SPINE WITHOUT COMPLETED DATE/TIME: 12/06/2017 12:14 pm REASON FOR STUDY: CERVICAL RADICULOPATHY, HEADACHES M54.12 RADICULOPATHY, CERVICAL REGION R51 HEAD ACHE COMPARISON: Cervical spine films 11/29/2017, 10/02/2017 TECHNIQUE: Sagittal and Axial imaging includes T1, T2, STIR and gradient echo sequences. LIMITATIONS: None. FINDINGS: ALIGNMENT: Reversal of cervical curvature, similar compared to plain films 11/29/2017 VERTEBRAE: Intact. BONE MARROW: Normal. No marrow replacement or reactive changes. DISCS: There is artifact at C5-6 from an anterior fixation plate and metallic disc spacer HARDWARE: None in the spine. CORD AND BASE OF BRAIN: Normal in size and signal intensity. SOFT TISSUES: No soft tissue masses. C1-C2: No significant spinal stenosis. C2-C3: No significant spinal stenosis or exit foraminal stenosis. C3-C4: No significant spinal stenosis or exit foraminal stenosis. C4-C5: No significant spinal stenosis or exit foraminal stenosis. C5-C6: Post discectomy and fusion. No central or right foraminal narrowing. Mild to moderate left f oraminal narrowing is present from facet and uncovertebral hypertrophy, best shown on axial series 7, images 87-95. C6-C7: No central or foraminal stenosis. Minimal right paracentral disc bulging. C7-T1: No significant spinal stenosis or exit foraminal stenosis. UPPER THORACIC: Incompletely imaged. No significant spinal stenosis or exit foraminal stenosis. OTHER: No other significant finding. IMPRESSION: No high-grade central or foraminal encroachment. Mild to moderate left foraminal narrow ing at C5-6 is present, related to facet and uncovertebral hypertrophy. TECHNICAL DOCUMENTATION: JOB ID: [id number] [employer]- All Rights Reserved Reading location - IP/workstation name: [email or web address]
== END ==
LOC: RAD 11:02
PROVIDERS: ATTEND Specialist
DX: M54.12 Radiculopathy, cervical region (principal); R51 Headache
CPT/HCPCS: 72141

== ENCOUNTER 2018-03-12 19:43 | Emergency (ER) | payer MEDICARE ==
--- NOTE | 2018-03-12 20:29 | ER Document Report ---
ED Medical Screen (RME) - General Chief Complaint: Neck Injury Stated Complaint: FALL Time Seen by Provider: 03/12/18 20:27 Notes: 47-year-old female chief complaint of fall where she slipped and landed on her back/neck, this was 3 days ago, she states she had immediate pain at the time and persistent pain symptoms, denies numbness, incontinence, she did hit her head but she denies loss of consciousness, vomiting. Denies blood thinner use. TRAVEL OUTSIDE OF THE [place] IN LAST 30 DAYS: No - Related Data Allergies/Adverse Reactions: doxycycline [Doxycycline] Allergy (Severe, Verified 12/12/17 07:37) Anaphylaxis prednisone [Prednisone] Allergy (Severe, Verified 12/12/17 07:37) Pressure in chest, turn red & feel on fire from inside tetracycline [Tetracycline] Allergy (Severe, Verified 12/12/17 07:36) Anaphylaxis sulfamethoxazole [From Bactrim] Allergy (Mild, Verified 12/12/17 07:37) Exfoliative Dermatitis trimethoprim [From Bactrim] Allergy (Mild, Verified 12/12/17 07:37) Exfoliative Dermatitis Past Medical History - Past Medical History Cardiac Medical History: Reports: Hx Hypercholesterolemia Denies: Hx Coronary Artery Disease, Hx Heart Attack, Hx Hypertension Pulmonary Medical History: Reports: Hx Bronchitis, Hx Pneumonia Denies: Hx Asthma, Hx COPD Neurological Medical History: Denies: Hx Cerebrovascular Accident, Hx Seizures Renal/ Medical History: Denies: Hx Peritoneal Dialysis GI Medical History: Denies: Hx Hepatitis, Hx Hiatal Hernia, Hx Ulcer Musculoskeltal Medical History: Reports Hx Arthritis, Reports Hx Musculoskeletal Deformity, Reports Hx Musculoskeletal Trauma Psychiatric Medical History: Reports: Hx Anxiety, Hx Bipolar Disorder, Hx Depression, Hx Post Traumatic Stress Disorder Traumatic Medical History: Reports: Hx Fractures Infectious Medical History: Denies: Hx Hepatitis Past Surgical History: Reports: Hx Adenoidectomy, Hx Appendectomy, Hx Cholecystectomy, Hx Dilation and Curettage - 7, Hx Gynecologic Surgery - Exploratory laparotomy looking for ovarian cyst, Hx Hysterectomy, Hx Oral Surgery - Dental surgery for most of her teeth, Hx Orthopedic Surgery - carpal tunnel bilateral, back surgery 2 next surgery 1 right foot surgery, Hx Tonsillectomy. Denies: Hx Mastectomy, Hx Open Heart Surgery, Hx Pacemaker - Immunizations Immunizations up to date: Yes Hx Diphtheria, Pertussis, Tetanus Vaccination: Yes Influenza Administration Date for 03/2017 - 08/2017 Season: 04/23/17 Physical Exam - Back Back: No: Normal - Tenderness generally over the lumbar areas and cervical areas , no tenderness noted over thoracic spine. No signs of trauma. Normal upper and lower extremity range of motion, normal strength, normal distal neurovascular exam. Doctor's Discharge - Discharge Referrals: DELISA BRADY MD [Primary Care Provider] - Follow up as needed
--- NOTE | 2018-03-12 21:16 | RADIOLOGY REPORT (SQ) ---
Lumbar spine five view on 03/12/2018 CLINICAL INDICATION: Low back pain after fall COMPARISON: None FINDINGS: The patient is status post posterior pedicle screw and benjamin fixation from L4 through S1. Disc spacers are noted at L4-5 and L5-S1. Vascular calcifications are noted. The lumbar spine is well aligned. No hardware complication is noted. There are no fractures. IMPRESSION: Postsurgical changes in the lower lumbar spine with no acute abnormality.
--- NOTE | 2018-03-12 21:17 | RADIOLOGY REPORT (SQ) ---
EXAM DESCRIPTION: XR CERVICAL SPINE 4-5 VIEWS COMPLETED DATE/TME: 03/12/2018 20:27 CLINICAL HISTORY: 47 years, Female, fall, pain COMPARISON: EXAM DESCRIPTION: CLINICAL HISTORY: fall, pain COMPARISON: None FINDINGS: Five view(s) submitted. Surgical hardware appears intact. There is reversal of the normal lordotic curvature. Alignment is normal. There is mild right C3-4 neural foraminal narrowing. There is mild left C2-3 neural foraminal narrowing. No fracture or dislocation is identified. Bone marrow attenuation is unremarkable. No radiopaque foreign body is identified. IMPRESSION: No acute fracture or dislocation.
== END 2018-03-13 00:15 | disposition left against medical advice (07) ==
LOC: ER 19:43
DX: Z53.21 Procedure and treatment not carried out due to patient leaving prior to being seen by health care provider (principal); S19.9XXA Unspecified injury of neck, initial encounter; M54.2 Cervicalgia; M54.9 Dorsalgia, unspecified; W01.0XXA Fall on same level from slipping, tripping and stumbling without subsequent striking against object, initial encounter
CPT/HCPCS: 72050; 72110; 99281

== ENCOUNTER → 2018-05-04 | Outpatient (CLI) | payer MEDICARE, OTHER ==
--- NOTE | 2018-05-04 13:45 | RADIOLOGY REPORT (SQ) ---
EXAM DESCRIPTION: MRI RT LOWER JOINT WITHOUT COMPLETED DATE/TIME: 05/04/2018 1:22 pm REASON FOR STUDY: OTHER TEAR OF MEDIAL MENISCUS, CURRENT INJURY, RIGHT KNEE (S83.241A) S83.241A OTH TEAR OF MEDIAL MENISCUS, CURRENT INJURY, R KNEE COMPARISON: Right knee MRI 06/03/2012 TECHNIQUE: Rightknee images acquired and stored on PACS. Multiplanar images include fat sensitive s equences as T1, water sensitive sequences as FST2 or STIR, cartilage sensitive sequences as FSPD, and gradient echo sequences. LIMITATIONS: None. FINDINGS: JOINT AND BURSAE: No effusion. BONE CORTEX AND MARROW: No alteration of signal to suggest marrow replacement. No worrisome bone lesi ons. No occult fracture. ACL: Intact. No degeneration or ganglion cyst. PCL: Intact. MCL: Intact. No periligamentous edema or fluid. LCL: Intact. No periligamentous edema or fluid. MEDIAL MENISCUS: Tiny tear to the inferior articular surface midbody and posterior horn medial menisc us best shown on sagittal image 18 and coronal image 16. No parameniscal cyst LATERAL MENISCUS: No tears. No abnormal signal. MEDIAL COMPARTMENT: Cartilage preserved. No bone bruises or reactive marrow edema. No osteophytes. LATERAL COMPARTMENT: Cartilage preserved. No bone bruises or reactive marrow edema. No osteophytes. PATELLA: Focal high-grade chondromalacia lower outer quadrant of the patella with subcortical cyst fo rmation, best shown on axial image 8 through 11, similar compared to prior study. Medial and lateral retinacula intact. EXTENSOR MECHANISM: Intact. Quadriceps and patella tendons normal. SOFT TISSUES: Adjacent muscles and subcutaneous tissues normal. Normal flow void in popliteal artery and vein. OTHER: No other significant finding. IMPRESSION: Suspect tiny undersurface mid body/ posterior horn medial meniscal tear Focal chondromalacia patella, lower outer quadrant TECHNICAL DOCUMENTATION: JOB ID: [id number] [employer]- All Rights Reserved Reading location - IP/workstation name: [email or web address]
== END ==
LOC: RAD 12:22
PROVIDERS: ATTEND Orthopaedic Surgery
DX: S83.241A Other tear of medial meniscus, current injury, right knee, initial encounter (principal); X58.XXXA Exposure to other specified factors, initial encounter

== ENCOUNTER → 2018-05-21 | Outpatient (CLI) | payer MEDICARE, OTHER ==
--- NOTE | 2018-05-21 11:51 | RADIOLOGY REPORT (SQ) ---
EXAM DESCRIPTION: CERV SP 3 VIEW OR LESS COMPLETED DATE/TIME: 05/21/2018 11:26 am REASON FOR STUDY: CERVICAL RADICULOPATHY (FLEX/EXT ONLY) COMPARISON: None. NUMBER OF VIEWS: Two views TECHNIQUE: Additional lateral views of the cervical spine in flexion and extension were obtained. LIMITATIONS: None. FINDINGS: Once again surgical changes are present from C3-C7 with disc implants. There is no instab ility between flexion and extension. IMPRESSION: Surgical changes. No instability. TECHNICAL DOCUMENTATION: JOB ID: [id number] [employer]- All Rights Reserved Reading location - IP/workstation name: [email or web address]
== END ==
LOC: RAD 10:56
PROVIDERS: ATTEND Specialist
DX: M54.12 Radiculopathy, cervical region (principal)
CPT/HCPCS: 72040

== ENCOUNTER 2018-05-24 12:57 | Emergency (ER) | payer MEDICARE, OTHER ==
[2018-05-24] MEDS ORDERED: ASPIRIN 81 MG TABLET, CHEWABLE PO ONE (13:59)
--- NOTE | 2018-05-24 14:02 | ER Document Report ---
ED Medical Screen (RME) - General Chief Complaint: Cough Stated Complaint: COUGH,WHEEZING,CHILLS Time Seen by Provider: 05/24/18 13:46 Mode of Arrival: Ambulatory Information source: Patient Notes: 47-year-old female presents to ED for complaint of chest pain with cough times a week. She states that she went to her primary care doctor they started on prednisone and Augmentin and albuterol but the chest pain has gotten worse. She states she feels like an elephant is sitting on her chest at this time. She does smoke half a pack a day. Patient is alert and oriented respirations regular and unlabored speaking with full sentences. She states she does not have any heart history. She states she does have blood pressure but there is never had any problems with her heart. Lungs are diminished with crackles. I have greeted and performed a rapid initial assessment of this patient. A comprehensive ED assessment and evaluation of the patient, analysis of test results and completion of medical decision making process will be conducted by an additional ED providers. TRAVEL OUTSIDE OF THE [place] IN LAST 30 DAYS: No - HPI Onset: Last week - Related Data Allergies/Adverse Reactions: doxycycline [Doxycycline] Allergy (Severe, Verified 12/12/17 07:37) Anaphylaxis prednisone [Prednisone] Allergy (Severe, Verified 12/12/17 07:37) Pressure in chest, turn red & feel on fire from inside tetracycline [Tetracycline] Allergy (Severe, Verified 12/12/17 07:36) Anaphylaxis sulfamethoxazole [From Bactrim] Allergy (Mild, Verified 12/12/17 07:37) Exfoliative Dermatitis trimethoprim [From Bactrim] Allergy (Mild, Verified 12/12/17 07:37) Exfoliative Dermatitis Past Medical History - Past Medical History Cardiac Medical History: Reports: Hx Hypercholesterolemia Denies: Hx Coronary Artery Disease, Hx Heart Attack, Hx Hypertension Pulmonary Medical History: Reports: Hx Bronchitis, Hx Pneumonia Denies: Hx Asthma, Hx COPD Neurological Medical History: Denies: Hx Cerebrovascular Accident, Hx Seizures Renal/ Medical History: Denies: Hx Peritoneal Dialysis GI Medical History: Denies: Hx Hepatitis, Hx Hiatal Hernia, Hx Ulcer Musculoskeltal Medical History: Reports Hx Arthritis, Reports Hx Musculoskeletal Deformity, Reports Hx Musculoskeletal Trauma Psychiatric Medical History: Reports: Hx Anxiety, Hx Bipolar Disorder, Hx Depression, Hx Post Traumatic Stress Disorder Traumatic Medical History: Reports: Hx Fractures Infectious Medical History: Denies: Hx Hepatitis Past Surgical History: Reports: Hx Adenoidectomy, Hx Appendectomy, Hx Cholecystectomy, Hx Dilation and Curettage - 7, Hx Gynecologic Surgery - Exploratory laparotomy looking for ovarian cyst, Hx Hysterectomy, Hx Oral Surgery - Dental surgery for most of her teeth, Hx Orthopedic Surgery - carpal tunnel bilateral, back surgery 2 next surgery 1 right foot surgery, Hx Tonsillectomy. Denies: Hx Mastectomy, Hx Open Heart Surgery, Hx Pacemaker - Immunizations Immunizations up to date: Yes Hx Diphtheria, Pertussis, Tetanus Vaccination: Yes Influenza Administration Date for 03/2017 - 08/2017 Season: 04/23/17 Physical Exam - Vital signs Vitals: Temp Pulse Resp BP Pulse Ox 98.9 F 77 18 117/16 L 97 05/24/18 13:14 05/24/18 13:14 05/24/18 13:14 05/24/18 13:14 05/24/18 13:14 Course - Vital Signs Vital signs: Temp Pulse Resp BP Pulse Ox 98.9 F 77 18 117/16 L 97 05/24/18 13:14 05/24/18 13:14 05/24/18 13:14 05/24/18 13:14 05/24/18 13:14 Doctor's Discharge - Discharge Referrals: ALLI MOSER MD [Primary Care Provider] - Follow up as needed
[2018-05-24] MEDS ORDERED: IPRATROPIUM/ALBUTEROL 0.5-2.5 MG/3 ML AMPUL NEB ONE (14:30)
--- NOTE | 2018-05-24 14:31 | ER Document Report ---
ED Respiratory Problem - General Mode of Arrival: Ambulatory Information source: Patient TRAVEL OUTSIDE OF THE [place] IN LAST 30 DAYS: No <CHHAYA BOLES - Last Filed: 05/24/18 15:22> <SHAHRIAR PATEL - Last Filed: 05/24/18 23:30> - General Chief Complaint: Cough Stated Complaint: COUGH,WHEEZING,CHILLS Time Seen by Provider: 05/24/18 13:46 Notes: 47-year-old female who presents to the emergency department today with complaints of bronchitis. Patient states she was seen by her PCP earlier this week and was prescribed Augmentin, prednisone, and an inhaler and she does not feel she is getting any better. Patient states she has a history of anxiety and she thinks the steroids are making her anxiety worse. Patient states she feels like this is what is causing her chest heaviness. Patient has a history of asthma. Patient states she has a nebulizer at home but it is 9 years old and does not work properly. Patient also complains of a "low grade fever". ( CHHAYA BOLES) - Related Data Allergies/Adverse Reactions: doxycycline [Doxycycline] Allergy (Severe, Verified 12/12/17 07:37) Anaphylaxis prednisone [Prednisone] Allergy (Severe, Verified 12/12/17 07:37) Pressure in chest, turn red & feel on fire from inside tetracycline [Tetracycline] Allergy (Severe, Verified 12/12/17 07:36) Anaphylaxis sulfamethoxazole [From Bactrim] Allergy (Mild, Verified 12/12/17 07:37) Exfoliative Dermatitis trimethoprim [From Bactrim] Allergy (Mild, Verified 12/12/17 07:37) Exfoliative Dermatitis Past Medical History - General Information source: Patient - Social History Smoking Status: Current Every Day Smoker Cigarette use (# per day): Yes Chew tobacco use (# tins/day): No Frequency of alcohol use: None Drug Abuse: None Family History: Arthritis, DM, Hyperlipidemia Patient has suicidal ideation: No Patient has homicidal ideation: No - Past Medical History Cardiac Medical History: Reports: Hx Hypercholesterolemia Pulmonary Medical History: Reports: Hx Bronchitis, Hx Pneumonia Musculoskeletal Medical History: Reports Hx Arthritis, Reports Hx Musculoskeletal Deformity, Reports Hx Musculoskeletal Trauma Psychiatric Medical History: Reports: Hx Anxiety, Hx Bipolar Disorder, Hx Depression, Hx Post Traumatic Stress Disorder Traumatic Medical History: Reports: Hx Fractures Past Surgical History: Reports: Hx Adenoidectomy, Hx Appendectomy, Hx Cholecystectomy, Hx Dilation and Curettage - 7, Hx Gynecologic Surgery - Exploratory laparotomy looking for ovarian cyst, Hx Hysterectomy, Hx Oral Surgery - Dental surgery for most of her teeth, Hx Orthopedic Surgery - carpal tunnel bilateral, back surgery 2 next surgery 1 right foot surgery, Hx Tonsillectomy - Immunizations Immunizations up to date: Yes Hx Diphtheria, Pertussis, Tetanus Vaccination: Yes <CHHAYA BOLES - Last Filed: 05/24/18 15:22> Review of Systems - Review of Systems Constitutional: No symptoms reported EENT: No symptoms reported Cardiovascular: No symptoms reported Respiratory: See HPI, Cough, Short of breath, Wheezing, Other - chest heaviness Gastrointestinal: No symptoms reported Genitourinary: No symptoms reported Female Genitourinary: No symptoms reported Musculoskeletal: No symptoms reported Skin: No symptoms reported Hematologic/Lymphatic: No symptoms reported Neurological/Psychological: No symptoms reported -: Yes All other systems reviewed and negative <CHHAYA BOLES - Last Filed: 05/24/18 15:22> Physical Exam <CHHAYA BOLES - Last Filed: 05/24/18 15:22> <SHAHRIAR PATEL - Last Filed: 05/24/18 23:30> - Vital signs Vitals: Temp Pulse Resp BP Pulse Ox 98.9 F 77 18 117/16 L 97 05/24/18 13:14 05/24/18 13:14 05/24/18 13:14 05/24/18 13:14 05/24/18 13:14 - Notes Notes: Physical Exam: General: Alert, appears well. HEENT: Normocephalic. Atraumatic. PERRL. Extraocular movements intact. Oropharynx clear. Neck: Supple. Non-tender. Respiratory: No respiratory distress. Wheezing bilaterally. Cardiovascular: Regular rate and rhythm. Abdominal: Normal Inspection. Non-tender. No distension. Normal Bowel Sounds. Back: Non-tender. No deformity or step off. Extremities: Moves all four extremities. Upper extremities: Normal inspection. Normal ROM. Lower extremities: Normal inspection. No edema. Normal ROM. Neurological: Normal cognition. AAOx4. Normal speech. Psychological: Normal affect. Normal Mood. (CHHAYA BOLES) Course - Laboratory Result Diagrams: 05/24/18 14:35 05/24/18 14:35 <CHHAYA BOLES - Last Filed: 05/24/18 15:22> - Laboratory Result Diagrams: 05/24/18 14:35 05/24/18 14:35 <SHAHRIAR PATEL - Last Filed: 05/24/18 23:30> - Re-evaluation Re-evalutation: 05/24/18 15:20 Patient is feeling better after DuoNeb and would like to go home. She is already on antibiotics and his steroids. Blood work within normal limits. No acute changes on EKG. Chest x-ray clear. Patient will be discharged home to follow-up with her doctor. Stable for discharge. Return if any worsening or concerning symptoms. Understands and agrees with plan (SHAHRIAR PATEL) - Vital Signs Vital signs: Temp Pulse Resp BP Pulse Ox 98.9 F 66 12 104/75 99 05/24/18 13:14 05/24/18 15:51 05/24/18 15:51 05/24/18 15:51 05/24/18 15:51 - Laboratory Laboratory results interpreted by me: 05/24/18 05/24/18 14:35 14:35 WBC 13.8 H Hgb 11.7 L Hct 35.3 L Absolute Neutrophils 8.8 H Glucose 145 H Discharge <CHHAYA BOLES - Last Filed: 05/24/18 15:22> <SHAHRIAR PATEL - Last Filed: 05/24/18 23:30> - Discharge Clinical Impression: Bronchospasm with bronchitis, acute Condition: Stable Disposition: HOME, SELF-CARE Instructions: Bronchitis With Bronchospasm (Wheezing) ([facility]) Prescriptions: Ipratropium/Albuterol Sulfate [Duoneb 3 ml Ampul] 3 ml NEB RTQ4HP PRN #30 vial.neb PRN Reason: Nebulizer [Nebulizer Machine] 1 each MC ASDIR PRN #1 kit PRN Reason: Forms: Smoking Cessation Education Referrals: HADLEY KAM PA-C [Primary Care Provider] - Follow up tomorrow Scribe Attestation: 05/24/18 23:30 I personally performed the services described in the documentation, reviewed and edited the documentation which was dictated to the scribe in my presence, and it accurately records my words and actions. (SHAHRIAR PATEL) Scribe Documentation - Scribe Written by Lamonte:: Lamonte Patel, 05/24/2018 1439 acting as scribe for :: Jemal <CHHAYA BOLES - Last Filed: 05/24/18 15:22>
--- NOTE | 2018-05-24 14:35 | RADIOLOGY REPORT (SQ) ---
EXAM DESCRIPTION: CHEST 2 VIEWS COMPLETED DATE/TIME: 05/24/2018 2:14 pm REASON FOR STUDY: states feel like an elephant is on her chest COMPARISON: 12/12/2016 and earlier EXAM PARAMETERS: NUMBER OF VIEWS: two views TECHNIQUE: Digital Frontal and Lateral radiographic views of the chest acquired. RADIATION DOSE: NA LIMITATIONS: none FINDINGS: LUNGS AND PLEURA: No opacities, masses or pneumothorax. No pleural effusion. MEDIASTINUM AND HILAR STRUCTURES: No masses or contour abnormalities. HEART AND VASCULAR STRUCTURES: Heart normal size. No evidence for failure. BONES: No acute findings. HARDWARE: None in the chest. Incompletely visualized ACDF of the cervical spine. Metallic clips in the right upper quadrant of the abdomen. OTHER: No other significant finding. IMPRESSION: NO ACUTE RADIOGRAPHIC FINDING IN THE CHEST. TECHNICAL DOCUMENTATION: JOB ID: [id number] [employer]- All Rights Reserved Reading location - IP/workstation name: [email or web address]
[2018-05-24 15:03] LABS: ABSOLUTE BASOPHILS # (AUTO) 0.1 10^3/uL (0.0-0.2); ABSOLUTE EOSINOPHILS # (AUTO) 0.3 10^3/uL (0.0-0.6); ABSOLUTE MONOCYTES (AUTO) 0.6 10^3/uL (0.1-1.4); ABSOLUTE NEUT (AUTO) 8.8 10^3/uL (1.7-8.2); BASOPHILS % (AUTO) 0.6 % (0-2); EOSINOPHILS % (AUTO) 2.1 % (0-6); HEMATOCRIT 35.3 % (36.0-47.0); HEMOGLOBIN 11.7 g/dL (12.0-15.5); LYMPHOCYTES % (AUTO) 29.1 % (13-45); MEAN CORPUSCULAR HEMOGLOBIN 28.5 pg (27.0-33.4); MEAN CORPUSCULAR HGB CONC 33.3 g/dL (32.0-36.0); MEAN CORPUSCULAR VOLUME 86 fl (80-97); MONOCYTES % (AUTO) 4.2 % (3-13); PLATELET COUNT 263 10^3/uL (150-450); RED BLOOD COUNT 4.12 10^6/uL (3.72-5.28); RED CELL DISTRIBUTION WIDTH 13.2 % (11.5-14.0); TOTAL CELLS COUNTED % (AUTO) 100 %; WHITE BLOOD COUNT 13.8 10^3/uL (4.0-10.5)
[2018-05-24 15:24] LABS: ALANINE AMINOTRANSFERASE 29 U/L (9-52); ALBUMIN 4.1 g/dL (3.5-5.0); ALKALINE PHOSPHATASE 109 U/L (38-126); ANION GAP 13 (5-19); ASPARTATE AMINO TRANSFERASE 33 U/L (14-36); BILIRUBIN,DIRECT 0.2 mg/dL (0.0-0.4); BILIRUBIN,TOTAL 0.2 mg/dL (0.2-1.3); BLOOD UREA NITROGEN 9 mg/dL (7-20); CALCIUM 9.2 mg/dL (8.4-10.2); CARBON DIOXIDE 23 mmol/L (22-30); CHLORIDE 107 mmol/L (98-107); CREATINE KINASE 90 U/L (30-135); GLUCOSE 145 mg/dL (75-110); POTASSIUM 3.7 mmol/L (3.6-5.0); SODIUM 143.2 mmol/L (137-145)
[2018-05-24 15:34] LABS: CREATINE KINASE MB 0.82 ng/mL (<4.55); TROPONIN I < 0.012 ng/mL
[2018-05-24 15:51] VITALS: BP 104/75
--- NOTE | 2018-05-24 17:20 | EKG REPORT ---
SEVERITY:- NORMAL ECG - SINUS RHYTHM : Confirmed by: Alfa Duarte MD 24-May-2018 17:20:05
== END 2018-05-24 16:37 | disposition home or self-care (01) ==
LOC: ER 12:57
DX: J20.9 Acute bronchitis, unspecified (principal); R06.2 Wheezing; E78.00 Pure hypercholesterolemia, unspecified; Z88.3 Allergy status to other anti-infective agents; Z90.49 Acquired absence of other specified parts of digestive tract
CPT/HCPCS: 93005; 94640; 99284; 36415; 82553; 82550; 85025; 80053; 84484; 71046; 93010; A9270 ×2; J7620

== ENCOUNTER → 2018-07-08 | Outpatient (CLI) | payer MEDICARE, OTHER ==
--- NOTE | 2018-07-08 12:11 | RADIOLOGY REPORT (SQ) ---
EXAM DESCRIPTION: CERV SP 3 VIEW OR LESS COMPLETED DATE/TIME: 07/08/2018 10:37 am REASON FOR STUDY: *F.E ONLY* CERVICAL RADICULOPATHY (M54.12) COMPARISON: None. FINDINGS: 2 lateral views of the cervical spine, upright flexion-extension. No abnormal motion. Normal alignment. C3 through C7 anterior instrumentation, intact. TECHNICAL DOCUMENTATION: JOB ID: [id number] Reading location - IP/workstation name: [email or web address]
== END ==
LOC: RAD 10:10
PROVIDERS: ATTEND Specialist
DX: M54.12 Radiculopathy, cervical region (principal)
CPT/HCPCS: 72040

== ENCOUNTER 2018-07-12 12:03 | Emergency (ER) | payer MEDICARE, OTHER ==
[2018-07-12 12:27] VITALS: BP 115/76
[2018-07-12] MEDS ORDERED: IPRATROPIUM/ALBUTEROL 0.5-2.5 MG/3 ML AMPUL NEB ONE (13:48)
[2018-07-12 14:28] LABS: A TYPE INFLUENZA AG NEGATIVE (NEGATIVE); B INFLUENZA AG NEGATIVE (NEGATIVE)
--- NOTE | 2018-07-12 14:51 | ER Document Report ---
HPI - HPI Time Seen by Provider: 07/12/18 13:45 Pain Level: 4 Notes: Patient is a 47-year-old female who presents with chief complaints of cough, congestion and body aches. Patient denies any fever, vomiting, nausea or diarrhea. Patient does report past medical history of COPD. - CONSTITUTIONAL Constitutional: DENIES: Fever, Chills - RESPIRATORY Respiratory: REPORTS: Coughing - REPRODUCTIVE Reproductive: DENIES: : - MUSCULOSKELETAL Musculoskeletal: REPORTS: Extremity pain - body aches Past Medical History - General Information source: Patient - Social History Smoking Status: Current Every Day Smoker Chew tobacco use (# tins/day): No Frequency of alcohol use: None Drug Abuse: None Family History: Arthritis, DM, Hyperlipidemia Patient has suicidal ideation: No Patient has homicidal ideation: No - Past Medical History Cardiac Medical History: Reports: Hx Hypercholesterolemia Denies: Hx Coronary Artery Disease, Hx Heart Attack, Hx Hypertension Pulmonary Medical History: Reports: Hx Bronchitis, Hx COPD, Hx Pneumonia Denies: Hx Asthma Neurological Medical History: Denies: Hx Cerebrovascular Accident, Hx Seizures Renal/ Medical History: Denies: Hx Peritoneal Dialysis GI Medical History: Denies: Hx Hepatitis, Hx Hiatal Hernia, Hx Ulcer Musculoskeletal Medical History: Reports Hx Arthritis, Reports Hx Musculoskeletal Deformity, Reports Hx Musculoskeletal Trauma Psychiatric Medical History: Reports: Hx Anxiety, Hx Bipolar Disorder, Hx Depre ssion, Hx Post Traumatic Stress Disorder Traumatic Medical History: Reports: Hx Fractures Infectious Medical History: Denies: Hx Hepatitis Past Surgical History: Reports: Hx Adenoidectomy, Hx Appendectomy, Hx Cholecystectomy, Hx Dilation and Curettage - 7, Hx Gynecologic Surgery - Exploratory laparotomy looking for ovarian cyst, Hx Hysterectomy, Hx Oral Surgery - Dental surgery for most of her teeth, Hx Orthopedic Surgery - carpal tunnel bilateral, back surgery 2 next surgery 1 right foot surgery, Hx Tonsillectomy. Denies: Hx Mastectomy, Hx Open Heart Surgery, Hx Pacemaker - Immunizations Immunizations up to date: Yes Hx Diphtheria, Pertussis, Tetanus Vaccination: Yes Vertical Provider Document - CONSTITUTIONAL Notes: PHYSICAL EXAMINATION: GENERAL: Well-appearing, well-nourished and in no acute distress. HEAD: Atraumatic, normocephalic. EYES: Pupils equal round extraocular movements intact, conjunctiva are normal. ENT: Nares patent with clear rhinorrhea. NECK: Normal range of motion, no lymphadenopathy. LUNGS: No respiratory distress, mild expiratory wheezes bilaterally. Musculoskeletal: Normal range of motion NEUROLOGICAL: Normal speech, normal gait. PSYCH: Normal mood, normal affect. SKIN: Warm, Dry, normal turgor, no rashes or lesions noted. - INFECTION CONTROL TRAVEL OUTSIDE OF THE [place] IN LAST 30 DAYS: No Course - Re-evaluation Re-evalutation: Influenza testing is negative. Patient's wheezing improved after administration of medications here in the emergency department. Patient has only had fever for 1 day so imaging is not indicated at this time. Patient's vital signs are stable. Patient discharged with likely upper respiratory illness. Patient does have prednisone on record as an allergy however patient states she can take oral prednisone. - Vital Signs Vital signs: Temp Pulse Resp BP Pulse Ox 98.0 F 89 16 115/76 96 07/12/18 12:26 07/12/18 12:26 07/12/18 12:26 07/12/18 12:26 07/12/18 12:26 Discharge - Discharge Clinical Impression: Upper respiratory infection Qualifiers: URI type: unspecified URI Qualified Code(s): J06.9 - Acute upper respiratory infection, unspecified Condition: Stable Disposition: HOME, SELF-CARE Additional Instructions: Your influenza testing was negative today. I am treating you for a viral upper respiratory infection. Please take all medications as prescribed. Return to see her primary care doctor if you have worsening of your symptoms, development of fever or any other symptoms that are concerning to you. Prescriptions: Benzonatate [Tessalon Perles 100 mg Capsule] 100 mg PO Q8HP PRN #40 capsule PRN Reason: Albuterol Sulfate [Proair HFA Inhalation Aerosol 8.5 gm MDI] 2 puff IH Q4H PRN #1 mdi PRN Reason: Fluticasone Propionate [Flonase Nasal Rosewood 50 Mcg/Rosewood 16 gm] 2 sprays NASL Q12 #1 inhaler Prednisone [Deltasone 20 mg Tablet] 3 tab PO DAILY 4 Days #12 tablet Referrals: HADLEY KAM PA-C [Primary Care Provider] - Follow up as needed
[2018-07-12] MEDS ORDERED: PREDNISONE 20 MG TABLET PO ONE (15:02)
== END 2018-07-12 15:12 | disposition home or self-care (01) ==
LOC: ER 12:03
DX: J06.9 Acute upper respiratory infection, unspecified (principal); R05 Cough; R09.81 Nasal congestion; M79.10 Myalgia, unspecified site; J44.9 Chronic obstructive pulmonary disease, unspecified; F17.200 Nicotine dependence, unspecified, uncomplicated
CPT/HCPCS: 94640; 99283; 87804; A9270 ×2; J7512; J7620

== ENCOUNTER → 2018-10-28 | Outpatient (CLI) | payer MEDICARE, OTHER ==
--- NOTE | 2018-10-28 11:05 | WOMENS IMAGING REPORT ---
EXAM DESCRIPTION: BILAT SCREENING MAMMO W/CAD COMPLETED DATE/TIME: 10/28/2018 10:30 am REASON FOR STUDY: Z12.31 ROUTINE BILATERAL SCREENING Z12.31 ENCNTR SCREEN MAMMOGRAM FOR MALIGNANT N EOPLASM OF COOKIE COMPARISON: 10/27/2017 TECHNIQUE: Standard craniocaudal and mediolateral oblique views of each breast recorded using [employer] acquisition. LIMITATIONS: None. FINDINGS: No masses, calcifications or architectural distortion. No areas of suspicion. Read with the assistance of CAD. .OM - [employer]2 [employer] Version 9.2 IMPRESSION: NORMAL MAMMOGRAM. BIRADS 1. BREAST DENSITY: b. There are scattered areas of fibroglandular density. BIRAD: 1 NEGATIVE RECOMMENDATION: ROUTINE SCREENING COMMENT: The patient has been notified of the results by letter per MQSA requirements. Additional no tification policies are in place for contacting patient with suspicious or incomplete findings. Quality ID #[id number]: The [employer] recommends an annual screening mammogram for women aged 40 years or over. This facility utilizes a reminder system to ensure that all patients receive reminder letters, and/or direct phone calls for appointments. This includes reminders for routine scr eening mammograms, diagnostic mammograms, or other Breast Imaging Interventions when appropriate. Th is patient will be placed in the appropriate reminder system. TECHNICAL DOCUMENTATION: FINDING NUMBER: (1) ASSESSMENT: (1) JOB ID: [id number] [employer]- All Rights Reserved Reading location - IP/workstation name: [email or web address]
== END ==
LOC: WI 10:07
PROVIDERS: ATTEND Nurse Practitioner Family
DX: Z12.31 Encounter for screening mammogram for malignant neoplasm of breast (principal)
CPT/HCPCS: 77067

== ENCOUNTER 2019-01-10 17:02 | Emergency (ER) | payer MEDICARE, OTHER ==
[2019-01-10] MEDS ORDERED: KETOROLAC TROMETHAMINE 60 MG/2 ML SDV IM ONE (19:02)
--- NOTE | 2019-01-10 19:05 | ER Document Report ---
ED Medical Screen (RME) - General Chief Complaint: Chest Wall Pain Stated Complaint: CHEST WALL PAIN Time Seen by Provider: 01/10/19 19:02 Primary Care Provider: HADLEY KAM PA-C [Primary Care Provider] - Follow up as needed TRAVEL OUTSIDE OF THE [place] IN LAST 30 DAYS: No - HPI Notes: 01/10/19 19:03 Patient is a 48-year-old female mental health disorders and history of cholec ystectomy who presents complaining of left-sided chest pain that radiates to her sternum intermittently over the past 1.5 weeks with the last episode prior to arrival and then again when she was getting her EKG performed. Patient states that it usually occurs when she is lying down or trying to move in different directions. Patient states that the pain does take her breath away on occasion. Patient states that she is otherwise eating and drinking without difficulty. She is urinating normally. +smoker. Denies any prolonged immobilization, distance travel, recent surgery/trauma, personal cancer history, hormone use, or previous DVT/PE. Denies JAIME, fever, neck pain, URI, n/v/d, Abd pain, dysuria, back pain, or rash. I have treated and performed a rapid initial assessment of this patient. A comprehensive ED assessment and evaluation of the patient, analysis of test results and completion of medical decision making process will be conducted by additional ED providers. PHYSICAL EXAMINATION: GENERAL: Well-appearing, well-nourished and in no acute distress. A&Ox4. Answers questions appropriately. LUNGS: Breath sounds clear to auscultation bilaterally and equal. No wheezes rales or rhonchi. HEART: Regular rate and rhythm without murmurs, rubs, gallops. Extremities: No cyanosis, clubbing, or edema b/l. Denis negative bilaterally. No lower extremity asymmetry. NEUROLOGICAL: Normal speech, normal gait. PSYCH: Normal mood, normal affect. - Related Data Allergies/Adverse Reactions: doxycycline [Doxycycline] Allergy (Severe, Verified 01/10/19 17:03) Anaphylaxis prednisone [Prednisone] Allergy (Severe, Verified 01/10/19 17:03) Pressure in chest, turn red & feel on fire from inside tetracycline [Tetracycline] Allergy (Severe, Verified 01/10/19 17:03) Anaphylaxis sulfamethoxazole [From Bactrim] Allergy (Mild, Verified 01/10/19 17:03) Exfoliative Dermatitis trimethoprim [From Bactrim] Allergy (Mild, Verified 01/10/19 17:03) Exfoliative Dermatitis Past Medical History - Past Medical History Cardiac Medical History: Reports: Hx Hypercholesterolemia Denies: Hx Coronary Artery Disease, Hx Heart Attack, Hx Hypertension Pulmonary Medical History: Reports: Hx Bronchitis, Hx COPD, Hx Pneumonia Denies: Hx Asthma Neurological Medical History: Denies: Hx Cerebrovascular Accident, Hx Seizures Renal/ Medical History: Denies: Hx Peritoneal Dialysis GI Medical History: Denies: Hx Hepatitis, Hx Hiatal Hernia, Hx Ulcer Musculoskeltal Medical History: Reports Hx Arthritis, Reports Hx Musculoskeletal Deformity, Reports Hx Musculoskeletal Trauma Psychiatric Medical History: Reports: Hx Anxiety, Hx Bipolar Disorder, Hx Depression, Hx Post Traumatic Stress Disorder Traumatic Medical History: Reports: Hx Fractures Infectious Medical History: Denies: Hx Hepatitis Past Surgical History: Reports: Hx Adenoidectomy, Hx Appendectomy, Hx Cholecystectomy, Hx Dilation and Curettage - 7, Hx Gynecologic Surgery - Exploratory laparotomy looking for ovarian cyst, Hx Hysterectomy, Hx Oral Surgery - Dental surgery for most of her teeth, Hx Orthopedic Surgery - carpal tunnel bilateral, back surgery 2 next surgery 1 right foot surgery, Hx Tonsillectomy. Denies: Hx Mastectomy, Hx Open Heart Surgery, Hx Pacemaker - Immunizations Immunizations up to date: Yes Hx Diphtheria, Pertussis, Tetanus Vaccination: Yes Influenza Administration Date for 03/2017 - 08/2017 Season: 04/23/17 Physical Exam - Vital signs Vitals: Temp Pulse Resp BP Pulse Ox 97.6 F 83 18 122/68 95 01/10/19 17:18 01/10/19 17:18 01/10/19 17:18 01/10/19 17:18 01/10/19 17:18 Course - Vital Signs Vital signs: Temp Pulse Resp BP Pulse Ox 97.6 F 83 18 122/68 95 01/10/19 17:18 01/10/19 17:18 01/10/19 17:18 01/10/19 17:18 01/10/19 17:18 Doctor's Discharge - Discharge Referrals: HADLEY KAM PA-C [Primary Care Provider] - Follow up as needed
[2019-01-10 19:38] LABS: ABSOLUTE BASOPHILS # (AUTO) 0.1 10^3/uL (0.0-0.2); ABSOLUTE EOSINOPHILS # (AUTO) 0.3 10^3/uL (0.0-0.6); ABSOLUTE LYMPHOCYTES (AUTO) 3.7 10^3/uL (0.5-4.7); ABSOLUTE MONOCYTES (AUTO) 0.7 10^3/uL (0.1-1.4); ABSOLUTE NEUT (AUTO) 6.4 10^3/uL (1.7-8.2); BASOPHILS % (AUTO) 1.2 % (0-2); EOSINOPHILS % (AUTO) 2.4 % (0-6); HEMATOCRIT 38.8 % (36.0-47.0); HEMOGLOBIN 12.7 g/dL (12.0-15.5); LYMPHOCYTES % (AUTO) 32.8 % (13-45); MEAN CORPUSCULAR HGB CONC 32.8 g/dL (32.0-36.0); MEAN CORPUSCULAR VOLUME 86 fl (80-97); PLATELET COUNT 353 10^3/uL (150-450); RED BLOOD COUNT 4.53 10^6/uL (3.72-5.28); RED CELL DISTRIBUTION WIDTH 13.6 % (11.5-14.0); SEGMENTED NEUTROPHILS % (AUTO) 57.6 % (42-78); TOTAL CELLS COUNTED % (AUTO) 100 %; WHITE BLOOD COUNT 11.2 10^3/uL (4.0-10.5)
[2019-01-10 20:01] LABS: ALANINE AMINOTRANSFERASE 38 U/L (9-52); ALBUMIN 4.3 g/dL (3.5-5.0); ALKALINE PHOSPHATASE 164 U/L (38-126); ANION GAP 11 (5-19); ASPARTATE AMINO TRANSFERASE 46 U/L (14-36); BILIRUBIN,DIRECT 0.2 mg/dL (0.0-0.4); BILIRUBIN,TOTAL 0.2 mg/dL (0.2-1.3); BLOOD UREA NITROGEN 7 mg/dL (7-20); CALCIUM 9.7 mg/dL (8.4-10.2); CARBON DIOXIDE 23 mmol/L (22-30); CHLORIDE 108 mmol/L (98-107); GLUCOSE 135 mg/dL (75-110); SODIUM 141.8 mmol/L (137-145); TOTAL PROTEIN 7.4 g/dL (6.3-8.2)
--- NOTE | 2019-01-10 20:01 | RADIOLOGY REPORT (SQ) ---
EXAM DESCRIPTION: CHEST 2 VIEWS COMPLETED DATE/TIME: 01/10/2019 7:38 pm REASON FOR STUDY: Left chest pain COMPARISON: 05/24/2018 EXAM PARAMETERS: NUMBER OF VIEWS: two views TECHNIQUE: Digital Frontal and Lateral radiographic views of the chest acquired. RADIATION DOSE: NA LIMITATIONS: none FINDINGS: LUNGS AND PLEURA: No opacities, masses or pneumothorax. No pleural effusion. MEDIASTINUM AND HILAR STRUCTURES: No masses or contour abnormalities. HEART AND VASCULAR STRUCTURES: Heart normal size. No evidence for failure. BONES: No acute findings. HARDWARE: None in the chest. OTHER: No other significant finding. IMPRESSION: No acute abnormality of the lungs. No focal airspace opacity. TECHNICAL DOCUMENTATION: JOB ID: [id number] [employer]- All Rights Reserved Reading location - IP/workstation name: [email or web address]
[2019-01-10] MEDS ORDERED: HYDROCODONE/ACETAMINOPHEN 5-325 MG TABLET PO ONE (20:30)
--- NOTE | 2019-01-10 21:24 | EKG REPORT ---
SEVERITY:- NORMAL ECG - SINUS RHYTHM : Confirmed by: Alfa Duarte MD 10-Jan-2019 21:23:58
[2019-01-10] MEDS ORDERED: LIDOCAINE 5% (700 MG) TRANSDERMAL ADH..PATCH TP ONE (21:35)
[2019-01-10 21:48] VITALS: BP 112/82
--- NOTE | 2019-01-10 21:58 | ER Document Report ---
Entered by GE FRANCO SCRIBE 01/10/192035 Acting as scribe for:MAGNUS STARK DO ED General - General Chief Complaint: Chest Wall Pain Stated Complaint: CHEST WALL PAIN Time Seen by Provider: 01/10/19 19:02 Primary Care Provider: HADLEY KAM PA-C [Primary Care Provider] - Follow up as needed Mode of Arrival: Ambulatory Information source: Patient Notes: Patient is a 48-year-old female with chronic back pain presents the emergency department complaining of chest pain onset 1.5 weeks ago. Patient states the pain is located underneath her left breast and radiates into her sternum that is onset when supine and changing positions to lay on her left side, does not occur when she lays on her right side. She also states that the pain intermittently "takes my breath away". Patient states she has tried Mobic and gabapentin, whic h has been prescribed for her chronic back pain, without relief. She also states she has been given Skelaxin and it also did not work. She also complains of episodes of diarrhea. She denies any fevers, nausea, vomiting, recent injuries, falls, traumas or rash. TRAVEL OUTSIDE OF THE [place] IN LAST 30 DAYS: No - Related Data Allergies/Adverse Reactions: doxycycline [Doxycycline] Allergy (Severe, Verified 01/10/19 17:03) Anaphylaxis prednisone [Prednisone] Allergy (Severe, Verified 01/10/19 17:03) Pressure in chest, turn red & feel on fire from inside tetracycline [Tetracycline] Allergy (Severe, Verified 01/10/19 17:03) Anaphylaxis sulfamethoxazole [From Bactrim] Allergy (Mild, Verified 01/10/19 17:03) Exfoliative Dermatitis trimethoprim [From Bactrim] Allergy (Mild, Verified 01/10/19 17:03) Exfoliative Dermatitis Past Medical History - General Information source: Patient - Social History Smoking Status: Current Every Day Smoker Chew tobacco use (# tins/day): No Frequency of alcohol use: None Drug Abuse: None Family History: Arthritis, DM, Hyperlipidemia Patient has suicidal ideation: No Patient has homicidal ideation: No - Past Medical History Cardiac Medical History: Reports: Hx Hypercholesterolemia Pulmonary Medical History: Reports: Hx Bronchitis, Hx COPD, Hx Pneumonia Musculoskeletal Medical History: Reports Hx Arthritis, Reports Hx Musculoskeletal Deformity, Reports Hx Musculoskeletal Trauma Psychiatric Medical History: Reports: Hx Anxiety, Hx Bipolar Disorder, Hx Depression, Hx Post Traumatic Stress Disorder Traumatic Medical History: Reports: Hx Fractures Past Surgical History: Reports: Hx Adenoidectomy, Hx Appendectomy, Hx Cholecystectomy, Hx Dilation and Curettage - 7, Hx Gynecologic Surgery - Exploratory laparotomy looking for ovarian cyst, Hx Hysterectomy, Hx Oral S urgery - Dental surgery for most of her teeth, Hx Orthopedic Surgery - carpal tunnel bilateral, back surgery 2 next surgery 1 right foot surgery, Hx Tonsillectomy - Immunizations Immunizations up to date: Yes Hx Diphtheria, Pertussis, Tetanus Vaccination: Yes Review of Systems - Review of Systems Constitutional: No symptoms reported EENT: No symptoms reported Cardiovascular: See HPI, Chest pain Respiratory: No symptoms reported Gastrointestinal: denies: Diarrhea, Nausea, Vomiting Genitourinary: No symptoms reported Female Genitourinary: No symptoms reported Musculoskeletal: No symptoms reported Skin: No symptoms reported Hematologic/Lymphatic: No symptoms reported Neurological/Psychological: No symptoms reported -: Yes All other systems reviewed and negative Physical Exam - Vital signs Vitals: Temp Pulse Resp BP Pulse Ox 97.6 F 83 18 122/68 95 01/10/19 17:18 01/10/19 17:18 01/10/19 17:18 01/10/19 17:18 01/10/19 17:18 - Notes Notes: GENERAL: Alert, interacts well. No acute distress. HEAD: Normocephalic, atraumatic. EYES: Pupils equal, round, and reactive to light. Extraocular movements intact. ENT: Oral mucosa moist, tongue midline. NECK: Full range of motion. Supple. Trachea midline. LUNGS: Clear to auscultation bilaterally, no wheezes, rales, or rhonchi. No respiratory distress. Minimal tenderness to the left anterior chest wall underneath left breast, no blistering rash, no tenderness to palpation on the back on either the right or the left. HEART: Regular rate and rhythm. No murmurs, gallops, or rubs. ABDOMEN: Soft, epigastric tenderness palpation.. Non-distended. Bowel sounds present in all 4 quadrants. No guarding, rigidity, or rebound. EXTREMITIES: Moves all 4 extremities spontaneously. NEUROLOGICAL: Alert and oriented x3. Normal speech. PSYCH: Normal affect, normal mood. SKIN: Warm, dry, normal turgor. No rashes or lesions noted. Course - Re-evaluation Re-evalutation: 01/10/19 21:34 CBC shows mild leukocytosis of 11.2, CMP shows slightly elevated glucose at 135 otherwise unremarkable, lipase normal, troponin negative, chest x-ray unremarkable, EKG nonischemic and does not show anything consistent with pericarditis. Pain is apparently only present on the outside of her chest along her chest wall on the left-hand side when she either lies on her back or lies on her left hand side. I was able to cause pain by palpating her epigastrium however otherwise had a great deal of difficulty reproducing her pain. I discussed with patient the possibility that this may represent acid reflux, patient is already taking omeprazole 20 mg twice a day, asked her to increase to 40 mg twice a day and we will try Lidoderm patch. It could possibly be viscerosomatic's causing the patient to have pain referred to her left external chest wall. There is no rash at this time, she is not sensitive to light touch and the pain does not radiate into her back so I doubt that this is shingles or atypical zoster however patient will return if she develops a blistering rash. Patient will be discharged home. - Vital Signs Vital signs: Temp Pulse Resp BP Pulse Ox 97.6 F 83 18 112/82 95 01/10/19 17:18 01/10/19 17:18 01/10/19 17:18 01/10/19 21:01 01/10/19 21:01 - Laboratory Result Diagrams: 01/10/19 19:20 01/10/19 19:20 Laboratory results interpreted by me: 01/10/19 01/10/19 19:20 19:20 WBC 11.2 H Chloride 108 H Glucose 135 H AST 46 H Alkaline Phosphatase 164 H - EKG Interpretation by Me Additional EKG results interpreted by me: 01/10/19 21:35 EKG shows sinus rhythm at a rate of 83, normal axis, normal intervals, no ST segment elevations or depressions, no T wave inversions per my interpretation. Discharge - Discharge Clinical Impression: Left-sided chest wall pain Condition: Stable Disposition: HOME, SELF-CARE Additional Instructions: Chest Wall Pain Your chest pain has been diagnosed as coming from the chest wall. This is often caused by straining the muscles or joints in the chest during physical activity, direct trauma, coughing, or vigorous vomiting. Persons with arthritis are especially prone to this type of pain, due to inflammation of the cartilage joints near the breast bone. Occasionally, no cause can be found. Rest from strenuous physical activity. This kind of chest pain is usually made worse by movement of the chest. Depending on the symptoms, we may prescribe medicine for pain, muscle relaxation, and antiinflammatory effects. If the pain is new, and seems to be due to muscle strain, cold packs can help. Otherwise, apply gentle warmth to the painful area for 15 minutes every hour or two. You should contact the doctor immediately if things change. Further evaluation is needed if you develop a fever or cough, if the nature of the pain changes, or if you become short of breath. I would like you to increase your antacid medication from omeprazole 20 mg twice a day to omeprazole 40 mg twice a day. You may simply take 2 tablets of the medication you already have at home. Prescriptions: Lidocaine [Lidoderm 5% (700 mg) Transdermal Patch] 1 patch TP DAILY #10 adh..patch Referrals: HADLEY KAM PA-C [Primary Care Provider] - Follow up as needed I personally performed the services described in the documentation, reviewed and edited the documentation which was dictated to the scribe in my presence, and it accurately records my words and actions.
== END 2019-01-10 21:54 | disposition home or self-care (01) ==
LOC: ER 17:02
DX: R07.89 Other chest pain (principal); M54.9 Dorsalgia, unspecified; G89.29 Other chronic pain; Z79.899 Other long term (current) drug therapy; F17.200 Nicotine dependence, unspecified, uncomplicated
CPT/HCPCS: 93005; 99284; 96372; 36415; 83690; 85025; 80053; 84484; 71046; 93010; J1885; A9270

== ENCOUNTER 2019-04-17 10:54 | Emergency (ER) | payer MEDICARE, OTHER ==
[2019-04-17] MEDS ORDERED: KETOROLAC TROMETHAMINE INJ/PF 30 MG/1 ML SDV IV ONE (11:24)
[2019-04-17] MEDS ORDERED: ACETAMINOPHEN 325 MG TABLET PO ONE (11:24)
[2019-04-17] MEDS ORDERED: LIDOCAINE 5% (700 MG) TRANSDERMAL ADH..PATCH TP SCH (11:30)
--- NOTE | 2019-04-17 11:30 | ER Document Report ---
ED General - General Chief Complaint: Low Back Pain Stated Complaint: FALL/BACK PAIN Primary Care Provider: HADLEY KAM PA-C [Primary Care Provider] - Follow up as needed Mode of Arrival: Medic Information source: Patient, Relative, Emergency Med Personnel Notes: 48-year-old female with COPD, hyperlipidemia, depression, PTSD, chronic neck and back pain presents via EMS with complaint of back pain after a fall at home that occurred just prior to arrival. Patient states that she was standing on her porch in her backyard which is approximately 4 inches off the ground when she fell backwards landing onto her buttocks. Patient is complaining of midline tenderness of the lumbar spine. She denies any neck or head pain. She denies hitting her head, loss of consciousness, preceding chest pain, dizziness, shortness of breath. Patient denies chronic pain medication use. She did receive 200 mcg of fentanyl via EMS in route. TRAVEL OUTSIDE OF THE [place] IN LAST 30 DAYS: No - HPI Onset: Just prior to arrival Onset/Duration: Sudden Quality of pain: Throbbing Severity: Moderate Pain Level: 2 Associated symptoms: denies: Chest pain, Nonproductive cough, Productive cough, Fever, Headache, Nausea, Vomiting, Shortness of breath, Weakness Exacerbated by: Movement Relieved by: Denies Similar symptoms previously: Yes Recently seen / treated by doctor: No - Related Data Allergies/Adverse Reactions: doxycycline [Doxycycline] Allergy (Severe, Verified 01/10/19 17:03) Anaphylaxis prednisone [Prednisone] Allergy (Severe, Verified 01/10/19 17:03) Pressure in chest, turn red & feel on fire from inside tetracycline [Tetracycline] Allergy (Severe, Verified 01/10/19 17:03) Anaphylaxis sulfamethoxazole [From Bactrim] Allergy (Mild, Verified 01/10/19 17:03) Exfoliative Dermatitis trimethoprim [From Bactrim] Allergy (Mild, Verified 01/10/19 17:03) Exfoliative Dermatitis Past Medical History - General Information source: Patient, Relative, Emergency Med Personnel - Social History Smoking Status: Current Every Day Smoker Cigarette use (# per day): Yes - 15 Smoking Education Provided: Yes - Smoking cessation counseling was provided for 4 minutes at the bedside Frequency of alcohol use: None Drug Abuse: None Lives with: Family Family History: Arthritis, DM, Hyperlipidemia Patient has suicidal ideation: No Patient has homicidal ideation: No - Past Medical History Cardiac Medical History: Reports: Hx Hypercholesterolemia Denies: Hx Coronary Artery Disease, Hx Heart Attack, Hx Hypertension Pulmonary Medical History: Reports: Hx Bronchitis, Hx COPD, Hx Pneumonia Denies: Hx Asthma Neurological Medical History: Denies: Hx Cerebrovascular Accident, Hx Seizures Renal/ Medical History: Denies: Hx Peritoneal Dialysis GI Medical History: Denies: Hx Hepatitis, Hx Hiatal Hernia, Hx Ulcer Musculoskeletal Medical History: Reports Hx Arthritis, Reports Hx Musculoskeletal Deformity, Reports Hx Musculoskeletal Trauma Psychiatric Medical History: Reports: Hx Anxiety, Hx Bipolar Disorder, Hx Depression, Hx Post Traumatic Stress Disorder Traumatic Medical History: Reports: Hx Fractures Infectious Medical History: Denies: Hx Hepatitis Past Surgical History: Reports: Hx Adenoidectomy, Hx Appendectomy, Hx Cholecystectomy, Hx Dilation and Curettage - 7, Hx Gynecologic Surgery - Exploratory laparotomy looking for ovarian cyst, Hx Hysterectomy, Hx Oral Surgery - Dental surgery for most of her teeth, Hx Orthopedic Surgery - carpal tunnel bilateral, back surgery 2 next surgery 1 right foot surgery, Hx Tonsillectomy. Denies: Hx Mastectomy, Hx Open Heart Surgery, Hx Pacemaker - Immunizations Immunizations up to date: Yes Hx Diphtheria, Pertussis, Tetanus Vaccination: Yes Review of Systems - Review of Systems Notes: REVIEW OF SYSTEMS: CONSTITUTIONAL : Denies fever, chills, or sweats. Denies recent illness. Denies weight loss, recent hospitalizations. EENT: Denies visual changes, eye pain. Denies sore throat, oral lesions, difficulty swallowing. CARDIOVASCULAR: Denies chest pain. Denies palpitations. Denies lower extremity edema. RESPIRATORY: Denies cough. Denies shortness of breath, wheezing. GASTROINTESTINAL: Denies abdominal pain or distention. Denies nausea, vomiting, or diarrhea. Denies blood in vomitus, stools, or per rectum. Denies black, tarry stools. Denies constipation. GENITOURINARY: Denies difficulty urinating, painful urination, frequency, blood in urine, or vaginal discharge. MUSCULOSKELETAL: + back or neck pain or stiffness. Denies joint pain or swelling. SKIN: Denies rash, lesions or sores. HEMATOLOGIC : Denies easy bruising or bleeding. LYMPHATIC: Denies swollen glands. NEUROLOGICAL: Denies confusion or altered mental status. Denies loss of consciousness. Denies dizziness or lightheadedness. Denies headache. Denies weakness or paralysis. Denies problems difficulty with ambulation, slurred speech. Denies sensory loss, numbness, or tingling. Denies seizures. PSYCHIATRIC: Denies anxiety or stress. Denies depression, suicidal ideation, or homicidal ideation. Denies visual or auditory hallucinations. Physical Exam - Vital signs Vitals: Temp Pulse Resp BP Pulse Ox 98.0 F 71 16 133/81 H 95 04/17/19 11:06 04/17/19 11:06 04/17/19 11:06 04/17/19 11:06 04/17/19 11:06 - Notes Notes: PHYSICAL EXAMINATION: GENERAL: Well-appearing, well-nourished and in no acute distress. GCS 15 HEAD: Atraumatic, normocephalic. EYES: Pupils equal round and reactive to light, extraocular movements intact, sclera anicteric, conjunctiva are normal. ENT: Nares patent, oropharynx clear without exudates. Moist mucous membranes. No hemanotympanum . No blood in nares. No dental fracture NECK: Normal range of motion, supple without lymphadenopathy. Trachea midline LUNGS: Breath sounds clear to auscultation bilaterally and equal. No wheezes rales or rhonchi. HEART: Regular rate and rhythm without murmurs. Pulses intact all throughout. ABDOMEN: Soft, nontender, nondistended abdomen. No guarding, no rebound. No masses appreciated. Musculoskeletal: Normal range of motion, no pitting or edema. No cyanosis. Hip non tender, stable. Midline tenderness of the lumbar spine without step-off or deformity NEUROLOGICAL: Cranial nerves grossly intact. Normal speech, normal gait. Normal sensory, motor, and reflex exams. PSYCH: Normal mood, normal affect. SKIN: Warm, No active bleeding U/S fast exam notes no obvious free fluid but this is a nondiagnostic evaluation Course - Re-evaluation Re-evalutation: 04/17/19 12:32 Lumbar Spine X-Ray 04/17/19 11:25 IMPRESSION: Acute anterior wedge compression fracture of L2. Temp Pulse Resp BP Pulse Ox 98.0 F 71 16 133/81 H 95 04/17/19 11:06 04/17/19 11:06 04/17/19 11:06 04/17/19 11:06 04/17/19 11:06 Presentation of a well appearing patient in mild distress secondary to pain, vitals within normal limits after a mechanical fall. No focal neurologic deficits on exam, no evidence of basilar skull fracture on exam without evidence of hemotympanum, raccoon eyes, or periauricular hematoma. No papilledema. Patient is not on anticoagulation. GCS is 15. Patient also evaluated by nexus criteria and found to be negative. Patient is also negative by tuvaluan C-spine criteria. No clinical evidence to suggest increased risk of cervical spine fracture. No indication for further imaging of the cervical spine. Patient has no focal deformities or limited range of motion in any joint space to indicate need for extremity imaging. Chest and abdominal exam are benign without any focal tenderness, shortness of breath, or bruising over the chest or abdominal wall. Patient has no flank tenderness. Patient did have midline tenderness of the lumbar spine and lumbar x-rays were obtained and showed an acute wedge compression fracture of L2. I've instructed the patient to return to emergency room immediately should they have any worsening or new symptoms that are concerning to them. Patient advised that she will need to follow-up with her primary care physician for further pain management. Patient was evaluated and treated as appropriate for the patient's presenting symptoms and complaint, with consideration of any critical or life threatening conditions that may be associated with their obtained history and exam as noted above. All results were discussed with patient and... Patient provided the opportunity to ask questions, and express concerns. Patient was educated on treatments based on their presumed diagnosis as noted above. At this time we will discharge the patient with return precautions and follow-up recommendations. Verbal discharge instructions given a the bedside. Medication warnings reviewed. Patient is in agreement with this plan and has verbalized understanding of return precautions. After careful consideration I feel that that patient can be safely discharged from the emergency department, they were advised to followup with a primary care physician in 2-3 days. Dictation on this chart was performed using voice recognition software and may result in unintended grammatical, spelling, syntax or errors. - Vital Signs Vital signs: Temp Pulse Resp BP Pulse Ox 98.0 F 71 16 133/81 H 95 04/17/19 11:06 04/17/19 11:06 04/17/19 11:06 04/17/19 11:06 04/17/19 11:06 - Diagnostic Test Radiology reviewed: Image reviewed, Reports reviewed Discharge - Discharge Clinical Impression: Fall Qualifiers: Encounter type: initial encounter Qualified Code(s): W19.XXXA - Unspecified fall, initial encounter Compression fx, lumbar spine Qualifiers: Encounter type: initial encounter Lumbar vertebra fracture level: L2 Qualified Code(s): S32.020A - Wedge compression fracture of second lumbar vertebra, initial encounter for closed fracture Condition: Good Disposition: HOME, SELF-CARE Instructions: Ice Packs ([facility]), Compression Fracture of the Spine ([facility]), Low Back Pain ([facility]) Additional Instructions: Follow up with your [id number] hours for further care or return to the ED IMMEDIATELY if symptoms worsen or you have any concerns. If you cannot afford to follow up with your primary care physician a list of low cost clinics have been provided at the end of your discharge papers as well. Most prescribed medications have multiple side effects. The safest thing to do is when filling your prescription speak to your pharmacist regarding possible interactions with your normal home medications and over the counter medications such as Ibuprofen, Tylenol, Benadryl. If you experience any symptoms that cause you discomfort or concern you should discontinue the medication immediately and return to the emergency room or call your primary care physician. Prescriptions: Docusate Sodium [Colace 100 mg Capsule] 100 mg PO DAILY #5 capsule Morphine Sulfate [Morphine Ir 15 Mg Tablet] 15 mg PO Q8H #12 tablet Referrals: HADLEY KAM PA-C [Primary Care Provider] - Follow up in 3-5 days
--- NOTE | 2019-04-17 12:11 | RADIOLOGY REPORT (SQ) ---
EXAM DESCRIPTION: L SPINE WHOLE COMPLETED DATE/TIME: 04/17/2019 11:51 am REASON FOR STUDY: fall midline tenderness COMPARISON: None. NUMBER OF VIEWS: Five views including obliques. TECHNIQUE: AP, lateral, oblique, and sacral radiographic images acquired of the lumbar spine. LIMITATIONS: None. FINDINGS: MINERALIZATION: Normal. SEGMENTATION: Normal. No transitional anatomy. ALIGNMENT: Normal. VERTEBRAE: Acute anterior wedge compression fracture of L2. DISCS: Preserved height. No significant osteophytes or end plate irregularity. POSTERIOR ELEMENTS: Posterior decompression L5. HARDWARE: Pedicle screws and bridging plates L4, L5, S1. Disc prostheses L4-5 and L5-S1. PARASPINAL SOFT TISSUES: Normal. PELVIS: Intact as visualized. No fractures or worrisome bone lesions. SI joints intact. OTHER: No other significant finding. IMPRESSION: Acute anterior wedge compression fracture of L2. TECHNICAL DOCUMENTATION: JOB ID: [id number] [employer]- All Rights Reserved Reading location - IP/workstation name: [email or web address]
[2019-04-17 13:07] VITALS: BP 118/77
== END 2019-04-17 13:18 | disposition home or self-care (01) ==
LOC: ER 10:54
DX: S32.020A Wedge compression fracture of second lumbar vertebra, initial encounter for closed fracture (principal); M54.5 Low back pain; M54.2 Cervicalgia; G89.29 Other chronic pain; W19.XXXA Unspecified fall, initial encounter; F17.210 Nicotine dependence, cigarettes, uncomplicated; J44.9 Chronic obstructive pulmonary disease, unspecified
CPT/HCPCS: 99406; 99283; 96374; 72110; A9270 ×2; J1885

== ENCOUNTER → 2019-05-22 | Outpatient (CLI) | payer MEDICARE, OTHER ==
--- NOTE | 2019-05-22 14:36 | RADIOLOGY REPORT (SQ) ---
EXAM DESCRIPTION: MRI LUMBAR SPINE WITHOUT COMPLETED DATE/TIME: 05/22/2019 12:50 pm REASON FOR STUDY: (M54.16)RADICULOPATHY, LUMBAR REGION;(M54.5)LOW BACK PAIN M54.5 LOW BACK PAIN M54 .16 RADICULOPATHY, LUMBAR REGION COMPARISON: Lumbar spine five views 04/17/2019 TECHNIQUE: Sagittal and Axial imaging includes T1, T2, STIR and gradient echo sequences. Coronal T2/ HASTE imaging. LIMITATIONS: None. FINDINGS: VISUALIZED UPPER ABDOMEN: Limited evaluation. No acute or suspicious findings suggested. SEGMENTATION: No transitional anatomy. The lowest well-developed disc space is labeled L5-S1. ALIGNMENT: Anatomic. VERTEBRAE AND BONE MARROW: About 50% loss of height of the L2 vertebral body is present related to a subacute upper endplate compression deformity. Marrow edema parallels the upper endplate of L2. The re is mild retropulsion of the posterosuperior corner of L2, causing about 40% central canal narrowin g, best shown on axial T2 image 7 and sagittal T2 image 9. Overall, the amount of L2 vertebral body compression has progressed compared to plain films 04/17/2019. DISC SIGNAL: Diffuse decreased T2 weighted intervertebral disc signal at L4-5 and L5-S1 POSTERIOR ELEMENTS: Generally intact. No pars defect evident. HARDWARE: Fusion from L4 through S1 with bilateral transpedicular screws. CORD AND CONUS: Normal in size and signal intensity. Conus at the L1-2 level. SOFT TISSUES: No aortic aneurysm seen. No bulky retroperitoneal adenopathy or mass. No paraspinal mas s or fluid. T10-11: Mild bilateral facet hypertrophy. No central or foraminal stenosis. T11-12: Moderate bilateral facet hypertrophy. No central stenosis. Mild bilateral foraminal narrow ing left greater than right. T12-L1: No central or foraminal stenosis L1-L2: There is about 40% canal narrowing at the L1-2 level related to retropulsion of the posterosup erior corner of the L2 vertebral body. Best shown on axial T2 image 6 and 7. No significant posteri or disc bulging. Mild bilateral inferior foraminal narrowing without exiting L1 nerve root impingeme nt. L2-L3: Mild bilateral facet and ligament hypertrophy. No central or foraminal encroachment L3-L4: Mild diffuse posterior disc bulge, bulky bilateral facet and ligament hypertrophy. Mild centr al canal narrowing best shown on axial image 17. Mild bilateral inferior foraminal narrowing without exiting L3 nerve root impingement L4-L5: Bilateral laminectomy. Central canal widely decompressed. Mild bilateral foraminal narrowing without exiting L4 nerve root impingement. Bilateral transpedicular screws and dorsal fixation plat es. L5-S1: Bilateral laminectomy. Central canal widely decompressed. Mild bilateral foraminal narrowing without exiting L5 nerve root impingement. Bilateral transpedicular screws and dorsal fixation plat es SACRUM: Visualized upper sacrum intact. OTHER: No other significant findings. IMPRESSION: 50% subacute compression deformity at the L2 level. Lower lumbar fusion as above TECHNICAL DOCUMENTATION: JOB ID: [id number] [employer]- All Rights Reserved Reading location - IP/workstation name: [email or web address]
== END ==
LOC: RAD 11:25
PROVIDERS: ATTEND Neurological Surgery
DX: M54.16 Radiculopathy, lumbar region (principal); M54.5 Low back pain
CPT/HCPCS: 72148

== ENCOUNTER 2019-06-06 09:45 | Emergency (ER) | payer MEDICARE, OTHER ==
[2019-06-06] MEDS ORDERED: KETOROLAC TROMETHAMINE 60 MG/2 ML SDV IM ONE (11:34)
--- NOTE | 2019-06-06 11:35 | ER Document Report ---
ED Medical Screen (RME) - General Chief Complaint: Back Pain Stated Complaint: LOWER BACK PAIN Time Seen by Provider: 06/06/19 11:29 Primary Care Provider: HADLEY KAM PA-C [Primary Care Provider] - Follow up as needed Mode of Arrival: Medic Information source: Patient Notes: 48-year-old female with history of compression fracture to L2 3 months ago presents today with complaints of reinjuring her back. Reports she was sitting on the couch petting her dog on the floor when she bent over and felt a pop. Reports she has excruciating pain down her left hip and left leg. Denies urinary bowel incontinence or retention. Reports she was going to see her primary care provider who gave her a shot of Decadron Toradol and some Phenergan. She is to see her pain management doctor tomorrow. She does not have any pain medication at this time. I have greeted and performed a rapid initial assessment of this patient. A comprehensive ED assessment and evaluation of the patient, analysis of test results and completion of the medical decision making process will be conducted by additional ED providers. Dictation of this chart was performed using voice recognition software; therefore, there may be some unintended grammatical errors. TRAVEL OUTSIDE OF THE [place] IN LAST 30 DAYS: No - Related Data Allergies/Adverse Reactions: doxycycline [Doxycycline] Allergy (Severe, Verified 06/06/19 11:29) Anaphylaxis prednisone [Prednisone] Allergy (Severe, Verified 06/06/19 11:29) Pressure in chest, turn red & feel on fire from inside tetracycline [Tetracycline] Allergy (Severe, Verified 06/06/19 11:29) Anaphylaxis sulfamethoxazole [From Bactrim] Allergy (Mild, Verified 06/06/19 11:29) Exfoliative Dermatitis trimethoprim [From Bactrim] Allergy (Mild, Verified 06/06/19 11:29) Exfoliative Dermatitis Past Medical History - Past Medical History Cardiac Medical History: Reports: Hx Hypercholesterolemia Denies: Hx Coronary Artery Disease, Hx Heart Attack, Hx Hypertension Pulmonary Medical History: Reports: Hx Bronchitis, Hx COPD, Hx Pneumonia Denies: Hx Asthma Neurological Medical History: Denies: Hx Cerebrovascular Accident, Hx Seizures Renal/ Medical History: Denies: Hx Peritoneal Dialysis GI Medical History: Denies: Hx Hepatitis, Hx Hiatal Hernia, Hx Ulcer Musculoskeltal Medical History: Reports Hx Arthritis, Reports Hx Musculoskeletal Deformity, Reports Hx Musculoskeletal Trauma Psychiatric Medical History: Reports: Hx Anxiety, Hx Bipolar Disorder, Hx Dep ression, Hx Post Traumatic Stress Disorder Traumatic Medical History: Reports: Hx Fractures Infectious Medical History: Denies: Hx Hepatitis Past Surgical History: Reports: Hx Adenoidectomy, Hx Appendectomy, Hx Cholecystectomy, Hx Dilation and Curettage - 7, Hx Gynecologic Surgery - Exploratory laparotomy looking for ovarian cyst, Hx Hysterectomy, Hx Oral Surgery - Dental surgery for most of her teeth, Hx Orthopedic Surgery - carpal tunnel bilateral, back surgery 2 next surgery 1 right foot surgery, Hx Tonsillectomy. Denies: Hx Mastectomy, Hx Open Heart Surgery, Hx Pacemaker - Immunizations Immunizations up to date: Yes Hx Diphtheria, Pertussis, Tetanus Vaccination: Yes Physical Exam - Vital signs Vitals: Temp Pulse Resp BP Pulse Ox 98.7 F 93 18 118/74 94 06/06/19 10:08 06/06/19 10:08 06/06/19 10:08 06/06/19 10:08 06/06/19 10:08 Course - Vital Signs Vital signs: Temp Pulse Resp BP Pulse Ox 98.7 F 93 18 118/74 94 06/06/19 10:08 06/06/19 10:08 06/06/19 10:08 06/06/19 10:08 06/06/19 10:08 Doctor's Discharge - Discharge Referrals: HADLEY KAM PA-C [Primary Care Provider] - Follow up as needed
--- NOTE | 2019-06-06 11:40 | ER Document Report ---
HPI - HPI Time Seen by Provider: 06/06/19 11:29 Pain Level: 4 Context: 48-year-old female with history of compression fracture to L2 3 months ago presents today with complaints of reinjuring her back. Reports she was sitting on the couch petting her dog on the floor when she bent over and felt a pop. Reports she has excruciating pain down her left hip and left leg. Denies urinary bowel incontinence or retention. Reports she was going to see her primary care provider who gave her a shot of Decadron Toradol and some Phenergan. She is to see her pain management doctor tomorrow. She does not have any pain medication at this time. - REPRODUCTIVE Reproductive: DENIES: : Past Medical History - General Information source: Patient - Social History Smoking Status: Current Every Day Smoker Chew tobacco use (# tins/day): No Frequency of alcohol use: None Drug Abuse: None Family History: Arthritis, DM, Hyperlipidemia Patient has suicidal ideation: No Patient has homicidal ideation: No - Past Medical History Cardiac Medical History: Reports: Hx Hypercholesterolemia Denies: Hx Coronary Artery Disease, Hx Heart Attack, Hx Hypertension Pulmonary Medical History: Reports: Hx Bronchitis, Hx COPD, Hx Pneumonia Denies: Hx Asthma Neurological Medical History: Denies: Hx Cerebrovascular Accident, Hx Seizures Renal/ Medical History: Denies: Hx Peritoneal Dialysis GI Medical History: Denies: Hx Hepatitis, Hx Hiatal Hernia, Hx Ulcer Musculoskeletal Medical History: Reports Hx Arthritis, Reports Hx Musculoskeletal Deformity, Reports Hx Musculoskeletal Trauma Psychiatric Medical History: Reports: Hx Anxiety, Hx Bipolar Disorder, Hx Depression, Hx Post Traumatic Stress Disorder Traumatic Medical History: Reports: Hx Fractures Infectious Medical History: Denies: Hx Hepatitis Past Surgical History: Reports: Hx Adenoidectomy, Hx Appendectomy, Hx Cholecystectomy, Hx Dilation and Curettage - 7, Hx Gynecologic Surgery - Exploratory laparotomy looking for ovarian cyst, Hx Hysterectomy, Hx Oral Surgery - Dental surgery for most of her teeth, Hx Orthopedic Surgery - carpal tunnel bilateral, back surgery 2 next surgery 1 right foot surgery, Hx Tonsillectomy. Denies: Hx Mastectomy, Hx Open Heart Surgery, Hx Pacemaker - Immunizations Immunizations up to date: Yes Hx Diphtheria, Pertussis, Tetanus Vaccination: Yes Vertical Provider Document - CONSTITUTIONAL Agree With Documented VS: Yes Exam Limitations: No Limitations General Appearance: WD/WN, Mild Distress - Winces with touch to the back - INFECTION CONTROL TRAVEL OUTSIDE OF THE [place] IN LAST 30 DAYS: No - HEENT HEENT: Atraumatic, Normocephalic - NECK Neck: Normal Inspection, Supple - RESPIRATORY Respiratory: Breath Sounds Normal, No Respiratory Distress - CARDIOVASCULAR Cardiovascular: Regular Rate - GI/ABDOMEN Gastrointestinal: Abdomen Soft, Abdomen Non-Tender - BACK Back: Normal Inspection - No obvious deformity patient complains of pain to the low back paraspinal. Good distal movement and sensation no weakness. - MUSCULOSKELETAL/EXTREMETIES Musculoskeletal/Extremeties: MAEW, FROM, Non-Tender - NEURO Level of Consciousness: Awake, Alert, Appropriate Motor/Sensory: No Motor Deficit - DERM Integumentary: Warm, Dry Adult Front & Back Diagram: 1 - Patient complains of pain history of L2 fracture. Course - Re-evaluation Re-evalutation: 06/06/19 12:56 This 48-year-old female with history of L2 compression fracture a couple months ago presents today after she was petting her dog while sitting on the couch bent over and felt a pop. She reports she is now having excruciating pain. Patient reports she is scheduled to see pain management tomorrow is also scheduled to have some kind of back surgery to her back. She denies urinary bowel incontinence or retention. She denies numbness or tingling. Denies saddle anesthesia. Reports she is voiding bowel movement without problems. Denies history of IV drug use. X-ray was negative for a new acute fracture. Patient was instructed on this. She was prescribed pain medication. She was also instructed to follow-up with her pain management tomorrow as well as Dr. Lee for reevaluation. She was instructed to return the emergency department for urinary bowel incontinence or retention increased pain concerns. She verbalized understanding to all instructions. Lumbar Spine X-Ray 06/06/19 11:32 IMPRESSION: 1. Osteopenia. 2. Known L2 compression fracture. 3. Postoperative changes. Spondylosis. 06/06/19 20:18 Dictation of this chart was performed using voice recognition software; therefore, there may be some unintended grammatical errors. - Vital Signs Vital signs: Temp Pulse Resp BP Pulse Ox 98.7 F 93 18 118/74 94 06/06/19 11:29 06/06/19 10:08 06/06/19 11:29 06/06/19 10:08 06/06/19 11:29 - Diagnostic Test Radiology reviewed: Image reviewed, Reports reviewed Discharge - Discharge Clinical Impression: Low back pain Qualifiers: Chronicity: acute Back pain laterality: left Sciatica presence: with sciatica Sciatica laterality: sciatica of left side Qualified Code(s): M54.42 - Lumbago with sciatica, left side L2 vertebral fracture Qualifiers: Encounter type: subsequent encounter Fracture type: closed Fracture morphology: unspecified fracture morphology Condition: Stable Disposition: HOME, SELF-CARE Instructions: Ice Packs ([facility]), Low Back Pain ([facility]), Oral Narcotic Medication ([facility]), Toradol Injection ([facility]) Additional Instructions: *You have been evaluated for back pain *Take medication as prescribed *Rest/Ice- packs as indicated *Follow up with Dr. Lee tomorrow for recheck *Return to ED for worsening condition, changes, needs Prescriptions: Oxycodone HCl/Acetaminophen [Percocet 5-325 mg Tablet] 1 tab PO ASDIR PRN #10 tablet PRN Reason: Referrals: HADLEY KAM PA-C [Primary Care Provider] - Follow up as needed
[2019-06-06 11:59] LABS: APPEARANCE,URINE CLEAR; BILIRUBIN,URINE NEGATIVE (NEGATIVE); COLOR,URINE YELLOW; GLUCOSE, URINE 50 mg/dL (NEGATIVE); KETONES,URINE NEGATIVE (NEGATIVE); LEUKOCYTE ESTERASE,URINE NEGATIVE (NEGATIVE); NITRITE,URINE NEGATIVE (NEGATIVE); PROTEIN,URINE NEGATIVE (NEGATIVE); URINE SPECIFIC GRAVITY 1.011; UROBILINOGEN,URINE NEGATIVE mg/dL (<2.0)
--- NOTE | 2019-06-06 12:54 | RADIOLOGY REPORT (SQ) ---
EXAM DESCRIPTION: L SPINE WHOLE COMPLETED DATE/TIME: 06/06/2019 12:03 pm REASON FOR STUDY: pain, hx l2 fx , reinjured this COMPARISON: 05/22/2019 MRI. NUMBER OF VIEWS: Five views including obliques. TECHNIQUE: AP, lateral, oblique, and sacral radiographic images acquired of the lumbar spine. LIMITATIONS: None. FINDINGS: MINERALIZATION: Osteopenic. SEGMENTATION: Normal. No transitional anatomy. ALIGNMENT: Normal. VERTEBRAE: L2 compression fracture, as seen on recent MRI. Remaining vertebrae are maintained. DISCS: L1-2 disc disease. POSTERIOR ELEMENTS: Pedicles and facets are intact. No pars defect or posterior arch defects. HARDWARE: Dorsal instrumentation L4 through S1 bilaterally, grossly intact. PARASPINAL SOFT TISSUES: Normal. PELVIS: Intact as visualized. No fractures or worrisome bone lesions. SI joints intact. OTHER: No other significant finding. IMPRESSION: 1. Osteopenia. 2. Known L2 compression fracture. 3. Postoperative changes. Spondylosis. TECHNICAL DOCUMENTATION: JOB ID: [id number] [employer]- All Rights Reserved Reading location - IP/workstation name: [email or web address]
[2019-06-06 13:14] VITALS: BP 105/66
[2019-06-06] MEDS ORDERED: DEXAMETHASONE SOD PHOS INJ 10 MG/1 ML VIAL IM ONE (13:24)
[2019-06-06] MEDS ORDERED: PROMETHAZINE HCL INJ 25 MG/1 ML VIAL IM ONE (13:25)
== END 2019-06-06 13:50 | disposition home or self-care (01) ==
LOC: ER 09:45
DX: S32.029D Unspecified fracture of second lumbar vertebra, subsequent encounter for fracture with routine healing (principal); M54.42 Lumbago with sciatica, left side; M25.552 Pain in left hip; M79.605 Pain in left leg; X58.XXXD Exposure to other specified factors, subsequent encounter; F17.200 Nicotine dependence, unspecified, uncomplicated; J44.9 Chronic obstructive pulmonary disease, unspecified
CPT/HCPCS: 99284; 96372; 81001; 72110; J1885; J2550; J1100

== ENCOUNTER → 2019-06-18 | Outpatient (CLI) | payer MEDICARE, OTHER ==
--- NOTE | 2019-06-19 21:59 | RADIOLOGY REPORT (SQ) ---
EXAM DESCRIPTION: MRI LUMBAR SPINE WITHOUT COMPLETED DATE/TIME: 06/18/2019 4:26 pm REASON FOR STUDY: (S32.020S)WEDGE COMPRESSION FRACTURE OF SECOND LUM VERTEBRA, SEQUELA M54.5 LOW BA CK PAIN S32.020S WEDGE COMPRESSION FRACTURE OF SECOND LUM VERTEBRA, COMPARISON: 05/22/2019 TECHNIQUE: Sagittal and Axial imaging includes T1, T2, STIR and gradient echo sequences. Coronal T2/ HASTE imaging. LIMITATIONS: None. FINDINGS: VISUALIZED UPPER ABDOMEN: Limited evaluation. No acute or suspicious findings suggested. SEGMENTATION: No transitional anatomy. The lowest well-developed disc space is labeled L5-S1. ALIGNMENT: Anatomic. VERTEBRAE: L2 compression fracture has been treated with kyphoplasty. Mild residual edema. Unchange d mild retropulsion. No acute compression fracture. BONE MARROW: As above. Marrow signal otherwise normal as assessed. DISC SIGNAL: Disc disease particularly L4-5 and L5-S1. POSTERIOR ELEMENTS: Dorsal decompressions at L4 and L5. HARDWARE: Dorsal rods and screws bilaterally L4 through S1. CORD AND CONUS: Normal in size and signal intensity. Conus at the appropriate level. SOFT TISSUES: No aortic aneurysm seen. No bulky retroperitoneal adenopathy or mass. No paraspinal mas s or fluid. L1-L2: Retropulsion related to fracture with mild -moderate central canal narrowing as before. Noncr itical foraminal encroachment. L2-L3: Mild disc and facet disease without central stenosis. Slight foraminal narrowing. L3-L4: Mild broad disc bulging. Posterior ligament thickening and facet overgrowth with mild -modera te central narrowing and mild bilateral foraminal encroachment. L4-L5: Postoperative changes. No stenosis. L5-S1: Postoperative changes. No stenosis. LOWER THORACIC: Incompletely imaged. No stenosis seen. SACRUM: Visualized upper sacrum intact. OTHER: No other significant findings. IMPRESSION: 1. Other than inter current kyphoplasty of the L2 compression fracture, no change. No new compressio n deformities. No progressive stenosis or spinal malalignment. Postoperative and degenerative abdul es as before. TECHNICAL DOCUMENTATION: JOB ID: [id number] [employer]- All Rights Reserved Reading location - IP/workstation name: [email or web address]
== END ==
LOC: RAD 14:45
PROVIDERS: ATTEND Pain Medicine Pain Medicine
DX: S32.020S Wedge compression fracture of second lumbar vertebra, sequela (principal); R32 Unspecified urinary incontinence; X58.XXXS Exposure to other specified factors, sequela
CPT/HCPCS: 72148

== ENCOUNTER → 2019-07-13 | Outpatient (CLI) | payer MEDICARE, OTHER ==
--- NOTE | 2019-07-13 15:58 | RADIOLOGY REPORT (SQ) ---
EXAM DESCRIPTION: HIP BILATERAL COMPLETED DATE/TIME: 07/13/2019 11:15 am REASON FOR STUDY: PAIN IN LEFT HIP (M25.552) M25.552 PAIN IN LEFT HIP COMPARISON: None. NUMBER OF VIEWS: Two views. TECHNIQUE: AP pelvis and additional frog-leg view of the right and left hip. LIMITATIONS: None. FINDINGS: MINERALIZATION: Normal. Right HIP: No fracture or dislocation. No worrisome bone lesions. No contour deformity. No joint sp charisse narrowing. Left HIP: No fracture or dislocation. No worrisome bone lesions. PUBIS AND ISCHIUM: No fracture. PELVIS: No fracture. SACRUM: No fracture or dislocation. No worrisome bone lesions. LOWER LUMBAR SPINE: Rods are present from L4-S1. SOFT TISSUES: No findings. OTHER: No other significant finding. IMPRESSION: Prior surgical changes in the lumbar spine. Normal hips. TECHNICAL DOCUMENTATION: JOB ID: [id number] [employer]- All Rights Reserved Reading location - IP/workstation name: [email or web address]
== END ==
LOC: RAD 10:58
PROVIDERS: ATTEND Pain Medicine Pain Medicine
DX: M25.552 Pain in left hip (principal)
CPT/HCPCS: 73522

== ENCOUNTER 2019-07-29 08:52 | Emergency (ER) | payer MEDICARE, OTHER ==
--- NOTE | 2019-07-29 09:53 | ER Document Report ---
ED Medical Screen (RME) - General Chief Complaint: Blood Pressure Problem Stated Complaint: BLOOD SUGAR PROBLEMS Time Seen by Provider: 07/29/19 09:51 Primary Care Provider: PRANAV JAIMES MD [Primary Care Provider] - Follow up as needed Mode of Arrival: Ambulatory Information source: Patient Notes: 48-year-old female presented to ED for elevated blood sugar. She states she is being tested for diabetes at the doctor's office as well as other ailments. Her blood sugar this morning was 48. She has blurred vision balance and fatigue. We will get labs to include blood work and urine treat her with IV fluids and have reevaluated. I have greeted and performed a rapid initial assessment of this patient. A comprehensive ED assessment and evaluation of the patient, analysis of test results and completion of medical decision making process will be conducted by an additional ED providers. TRAVEL OUTSIDE OF THE [place] IN LAST 30 DAYS: No - Related Data Allergies/Adverse Reactions: doxycycline [Doxycycline] Allergy (Severe, Verified 07/29/19 09:43) Anaphylaxis prednisone [Prednisone] Allergy (Severe, Verified 07/29/19 09:43) Pressure in chest, turn red & feel on fire from inside tetracycline [Tetracycline] Allergy (Severe, Verified 07/29/19 09:43) Anaphylaxis sulfamethoxazole [From Bactrim] Allergy (Mild, Verified 07/29/19 09:43) Exfoliative Dermatitis trimethoprim [From Bactrim] Allergy (Mild, Verified 07/29/19 09:43) Exfoliative Dermatitis Past Medical History - Past Medical History Cardiac Medical History: Reports: Hx Hypercholesterolemia Denies: Hx Coronary Artery Disease, Hx Heart Attack, Hx Hypertension Pulmonary Medical History: Reports: Hx Bronchitis, Hx COPD, Hx Pneumonia Denies: Hx Asthma Neurological Medical History: Denies: Hx Cerebrovascular Accident, Hx Seizures Renal/ Medical History: Denies: Hx Peritoneal Dialysis GI Medical History: Denies: Hx Hepatitis, Hx Hiatal Hernia, Hx Ulcer Musculoskeltal Medical History: Reports Hx Arthritis, Reports Hx Musculoskeletal Deformity, Reports Hx Musculoskeletal Trauma Psychiatric Medical History: Reports: Hx Anxiety, Hx Bipolar Disorder, Hx Depression, Hx Post Traumatic Stress Disorder Traumatic Medical History: Reports: Hx Fractures Infectious Medical History: Denies: Hx Hepatitis Past Surgical History: Reports: Hx Adenoidectomy, Hx Appendectomy, Hx Cholecystectomy, Hx Dilation and Curettage - 7, Hx Gynecologic Surgery - Exploratory laparotomy looking for ovarian cyst, Hx Hysterectomy, Hx Oral Surgery - Dental surgery for most of her teeth, Hx Orthopedic Surgery - carpal tunnel bilateral, back surgery 2 next surgery 1 right foot surgery, Hx Tonsillectomy. Denies: Hx Mastectomy, Hx Open Heart Surgery, Hx Pacemaker - Immunizations Immunizations up to date: Yes Hx Diphtheria, Pertussis, Tetanus Vaccination: Yes Physical Exam - Vital signs Vitals: Temp Pulse Resp BP Pulse Ox 98.4 F 79 16 131/83 H 97 07/29/19 08:57 07/29/19 08:57 07/29/19 08:57 07/29/19 08:57 07/29/19 08:57 Course - Vital Signs Vital signs: Temp Pulse Resp BP Pulse Ox 98.4 F 79 16 131/83 H 97 07/29/19 08:57 07/29/19 08:57 07/29/19 08:57 07/29/19 08:57 07/29/19 08:57 Doctor's Discharge - Discharge Referrals: PRANAV JAIMES MD [Primary Care Provider] - Follow up as needed
[2019-07-29] MEDS ORDERED: NORMAL SALINE 1000 ML 1,000 ML IV PRN (09:54)
[2019-07-29 10:33] LABS: ABSOLUTE BASOPHILS # (AUTO) 0.1 10^3/uL (0.0-0.2); ABSOLUTE EOSINOPHILS # (AUTO) 0.2 10^3/uL (0.0-0.6); ABSOLUTE LYMPHOCYTES (AUTO) 2.5 10^3/uL (0.5-4.7); ABSOLUTE MONOCYTES (AUTO) 0.7 10^3/uL (0.1-1.4); ABSOLUTE NEUT (AUTO) 6.3 10^3/uL (1.7-8.2); EOSINOPHILS % (AUTO) 2.2 % (0-6); HEMATOCRIT 35.6 % (36.0-47.0); HEMOGLOBIN 12.1 g/dL (12.0-15.5); LYMPHOCYTES % (AUTO) 25.2 % (13-45); MEAN CORPUSCULAR HGB CONC 33.9 g/dL (32.0-36.0); MEAN CORPUSCULAR VOLUME 86 fl (80-97); MONOCYTES % (AUTO) 7.5 % (3-13); PLATELET COUNT 297 10^3/uL (150-450); RED BLOOD COUNT 4.16 10^6/uL (3.72-5.28); RED CELL DISTRIBUTION WIDTH 14.9 % (11.5-14.0); SEGMENTED NEUTROPHILS % (AUTO) 64.1 % (42-78); TOTAL CELLS COUNTED % (AUTO) 100 %; WHITE BLOOD COUNT 9.8 10^3/uL (4.0-10.5)
[2019-07-29 10:41] LABS: APPEARANCE,URINE CLEAR; BILIRUBIN,URINE NEGATIVE (NEGATIVE); COLOR,URINE YELLOW; GLUCOSE, URINE NEGATIVE (NEGATIVE); KETONES,URINE NEGATIVE (NEGATIVE); LEUKOCYTE ESTERASE,URINE NEGATIVE (NEGATIVE); NITRITE,URINE NEGATIVE (NEGATIVE); PROTEIN,URINE NEGATIVE (NEGATIVE); UROBILINOGEN,URINE NEGATIVE mg/dL (<2.0)
[2019-07-29 10:58] LABS: ALBUMIN 4.1 g/dL (3.5-5.0); ALKALINE PHOSPHATASE 151 U/L (38-126); ANION GAP 8 (5-19); ASPARTATE AMINO TRANSFERASE 36 U/L (14-36); BILIRUBIN,TOTAL 0.2 mg/dL (0.2-1.3); BLOOD UREA NITROGEN 13 mg/dL (7-20); CALCIUM 9.1 mg/dL (8.4-10.2); CARBON DIOXIDE 28 mmol/L (22-30); CHLORIDE 103 mmol/L (98-107); GLUCOSE 119 mg/dL (75-110); POTASSIUM 4.6 mmol/L (3.6-5.0); TOTAL PROTEIN 6.8 g/dL (6.3-8.2)
--- NOTE | 2019-07-29 12:23 | ER Document Report ---
ED General - General Chief Complaint: High Blood Sugar Stated Complaint: BLOOD SUGAR PROBLEMS Time Seen by Provider: 07/29/19 09:51 Primary Care Provider: PRANAV JAIMES MD [Primary Care Provider] - Follow up as needed Mode of Arrival: Ambulatory Notes: Patient presents with dizziness and weakness for several days. She is being worked up for diabetes by her primary care and used her friend's glucometer this morning to check her sugar was elevated at the 300 range. She was actually foun d to have hypoglycemia this morning as well. She denies focal neurologic symptoms chest pain shortness of breath but has been urinating slightly more than usual and feels dehydrated without taking too much oral intake. She has no fevers body aches or focal symptoms other than that. TRAVEL OUTSIDE OF THE [place] IN LAST 30 DAYS: No - Related Data Allergies/Adverse Reactions: doxycycline [Doxycycline] Allergy (Severe, Verified 07/29/19 09:43) Anaphylaxis prednisone [Prednisone] Allergy (Severe, Verified 07/29/19 09:43) Pressure in chest, turn red & feel on fire from inside tetracycline [Tetracycline] Allergy (Severe, Verified 07/29/19 09:43) Anaphylaxis sulfamethoxazole [From Bactrim] Allergy (Mild, Verified 07/29/19 09:43) Exfoliative Dermatitis trimethoprim [From Bactrim] Allergy (Mild, Verified 07/29/19 09:43) Exfoliative Dermatitis Home Medications: states should be in the system. Past Medical History - General Information source: Patient - Social History Smoking Status: Current Every Day Smoker Chew tobacco use (# tins/day): No Frequency of alcohol use: None Drug Abuse: None Family History: Arthritis, DM, Hyperlipidemia Patient has suicidal ideation: No Patient has homicidal ideation: No - Past Medical History Cardiac Medical History: Reports: Hx Hypercholesterolemia Denies: Hx Coronary Artery Disease, Hx Heart Attack, Hx Hypertension Pulmonary Medical History: Reports: Hx Bronchitis, Hx COPD, Hx Pneumonia Denies: Hx Asthma Neurological Medical History: Denies: Hx Cerebrovascular Accident, Hx Seizures Renal/ Medical History: Denies: Hx Peritoneal Dialysis GI Medical History: Denies: Hx Hepatitis, Hx Hiatal Hernia, Hx Ulcer Musculoskeletal Medical History: Reports Hx Arthritis, Reports Hx Musculoskeletal Deformity, Reports Hx Musculoskeletal Trauma Psychiatric Medical History: Reports: Hx Anxiety, Hx Bipolar Disorder, Hx Depression, Hx Post Traumatic Stress Disorder Traumatic Medical History: Reports: Hx Fractures Infectious Medical History: Denies: Hx Hepatitis Past Surgical History: Reports: Hx Adenoidectomy, Hx Appendectomy, Hx Cholecyst ectomy, Hx Dilation and Curettage - 7, Hx Gynecologic Surgery - Exploratory laparotomy looking for ovarian cyst, Hx Hysterectomy, Hx Oral Surgery - Dental surgery for most of her teeth, Hx Orthopedic Surgery - carpal tunnel bilateral, back surgery 2 next surgery 1 right foot surgery, Hx Tonsillectomy. Denies: Hx Mastectomy, Hx Open Heart Surgery, Hx Pacemaker - Immunizations Immunizations up to date: Yes Hx Diphtheria, Pertussis, Tetanus Vaccination: Yes Review of Systems - Review of Systems Notes: REVIEW OF SYSTEMS GEN: Weakness malaise ENT: Denies sore throat, nasal discharge, ear pain EYES: Denies blurry vision, eye pain, discharge CV: Denies chest pain, palpitations, edema RESP: Denies cough, shortness of breath, wheezing GI: Denies abdominal pain, nausea, vomiting, diarrhea MSK: Denies joint pain/swelling, edema, SKIN: Denies rash, skin lesions LYMPH: Denies swollen glands/lymph nodes NEURO: Denies headache, focal weakness or numbness, dizziness PSYCH: Denies depression, suicidal or homicidal ideation PHYSICAL EXAMINATION General: No acute distress, well-nourished Head: Atraumatic, normocephalic ENT: Mouth normal, oropharynx moist, no exudates or tonsillar enlargement Eyes: Conjunctiva normal, pupils equal, lids normal Neck: No JVD, supple, no guarding CVS: Normal rate, regular rhythm, no murmurs Resp: No resp distress, equal and normal breath sounds bilaterally GI: Nondistended, soft, no tenderness to palpation, no rebound or guarding Ext: No deformities, no edema, normal range of motion in upper and lower ext Back: No CVA or midline TTP Skin: No rash, warm Lymphatic: No lymphadeopathy noted Neuro: Awake, alert. Face symmetric. GCS 15. Normal gait face symmetric language intact speech fluent no gross motor deficits. Physical Exam - Vital signs Vitals: Temp Pulse Resp BP Pulse Ox 98.4 F 79 16 131/83 H 97 07/29/19 08:57 07/29/19 08:57 07/29/19 08:57 07/29/19 08:57 07/29/19 08:57 Course - Re-evaluation Re-evalutation: 07/29/19 16:11 Patient presents with hyperglycemia but actually hypoglycemic on recheck. Not taking any hypoglycemic agents and being worked up for diabetes. Suspect light osmotic diuresis and dehydrationlabs are normal. Patient is hydrating in the ED has no gross motor deficits and looks well. I prescribed her glucometer per her request and she will follow-up with her regular doctor tomorrow by phone in the next week. I do not think there is any stroke or other infectious etiology here and she is stable for discharge. Insert discharge I have discussed with the patient there likely diagnosis, aftercare plan, follow-up plans and my usual and customary return precautions. They verbalized understanding of this. - Vital Signs Vital signs: Temp Pulse Resp BP Pulse Ox 98.3 F 82 20 114/74 94 07/29/19 12:53 07/29/19 12:53 07/29/19 12:53 07/29/19 12:53 07/29/19 12:53 - Laboratory Result Diagrams: 07/29/19 10:05 07/29/19 10:05 Laboratory results interpreted by me: 07/29/19 07/29/19 10:05 10:05 Hct 35.6 L RDW 14.9 H Glucose 119 H Alkaline Phosphatase 151 H Discharge - Discharge Clinical Impression: Hypoglycemia Condition: Good Disposition: HOME, SELF-CARE Instructions: Hypoglycemia Diet ([facility]) Referrals: PRANAV JAIMES MD [Primary Care Provider] - Follow up as needed
[2019-07-29 12:54] VITALS: BP 114/74
== END 2019-07-29 12:53 | disposition home or self-care (01) ==
LOC: ER 08:52
DX: E16.2 Hypoglycemia, unspecified (principal); F17.200 Nicotine dependence, unspecified, uncomplicated; E78.00 Pure hypercholesterolemia, unspecified; Z88.3 Allergy status to other anti-infective agents
CPT/HCPCS: 36415; 80053; 81001; 85025

== ENCOUNTER 2019-11-23 11:39 | Emergency (ER) | payer MEDICARE, OTHER ==
[2019-11-23] MEDS ORDERED: IPRATROPIUM/ALBUTEROL 0.5-2.5 MG/3 ML AMPUL NEB ONE (12:50)
--- NOTE | 2019-11-23 13:15 | ER Document Report ---
Entered by CHHAYA BOLES SCRIBE 11/23/19 1304 Acting as scribe for:ROSALVA OQUENDO MD ED Respiratory Problem - General Chief Complaint: Shortness Of Breath Stated Complaint: DIFFICULTY BREATHING Time Seen by Provider: 11/23/19 12:30 Primary Care Provider: HADLEY KAM PA-C [Primary Care Provider] - Follow up as needed Mode of Arrival: Ambulatory Information source: Patient, [facility] Records, Outside Facility Records Notes: This 49 year old female patient presents to the emergency department today with complaints of shortness of breath with a productive cough for one week. Patient states that she saw her PCP one week ago and was started on oral Levaquin for "bronchitis". Her description of the medications she got and when she got them is a little confusing, but she reports receiving Rocephin IV on 1 of the visits and Levaquin IV on another visit. She also received an IV steroid that she does not know the name of. The patient reports she does have an albuterol inhaler or nebulizer at home 11/15 - started on 7 day course of 750 mg levaquin 11/19 - started on Z-pack and Anora Ellipta 11/21 - diagnosed with "bacterial pneumonia and fluid on the left lung" and was given IV rocephin Labs from 11/21 show a white blood cell count of 16,000 72 segs, 0 bands, 22 lymphocytes. Patient states she was told to come here for admission. Reviewing pharmacy record shows that the patient takes Ativan 1 mg 3 times daily, and Percocet 7.5 mg 4 times daily. She is also on several other psychiatric medications. TRAVEL OUTSIDE OF THE [place] IN LAST 30 DAYS: No - Related Data Allergies/Adverse Reactions: doxycycline [Doxycycline] Allergy (Severe, Verified 11/23/19 12:09) Anaphylaxis prednisone [Prednisone] Allergy (Severe, Verified 11/23/19 12:09) Pressure in chest, turn red & feel on fire from inside tetracycline [Tetracycline] Allergy (Severe, Verified 11/23/19 12:09) Anaphylaxis sulfamethoxazole [From Bactrim] Allergy (Mild, Verified 11/23/19 12:09) Exfoliative Dermatitis trimethoprim [From Bactrim] Allergy (Mild, Verified 11/23/19 12:09) Exfoliative Dermatitis Past Medical History - General Information source: Patient, [facility] Records, Outside Facility Records - Social History Smoking Status: Current Every Day Smoker Cigarette use (# per day): Yes Chew tobacco use (# tins/day): No Smoking Education Provided: No Frequency of alcohol use: None Drug Abuse: None Lives with: Family Family History: Arthritis, DM, Hyperlipidemia Patient has homicidal ideation: No - Past Medical History Cardiac Medical History: Reports: Hx Hypercholesterolemia Pulmonary Medical History: Reports: Hx Bronchitis, Hx COPD, Hx Pneumonia Endocrine Medical History: Reports: Hx Diabetes Mellitus Type 2 Musculoskeletal Medical History: Reports Hx Arthritis, Reports Hx Musculoskeletal Deformity, Reports Hx Musculoskeletal Trauma Psychiatric Medical History: Reports: Hx Anxiety, Hx Bipolar Disorder, Hx Depression, Hx Post Traumatic Stress Disorder Traumatic Medical History: Reports: Hx Fractures Past Surgical History: Reports: Hx Adenoidectomy, Hx Appendectomy, Hx Cholecystectomy, Hx Dilation and Curettage - 7, Hx Gynecologic Surgery - Exploratory laparotomy looking for ovarian cyst, Hx Hysterectomy, Hx Oral Surgery - Dental surgery for most of her teeth, Hx Orthopedic Surgery - bilat carpal tunnel, L4-S1 fusion, ACF C3-7, right foot surgery, Hx Tonsillectomy - Immunizations Immunizations up to date: Yes Hx Diphtheria, Pertussis, Tetanus Vaccination: Yes Review of Systems - Review of Systems Constitutional: No symptoms reported EENT: No symptoms reported Cardiovascular: No symptoms reported Respiratory: See HPI, Cough, Short of breath, Sputum - Brown, Wheezing Gastrointestinal: No symptoms reported Genitourinary: No symptoms reported Female Genitourinary: No symptoms reported Musculoskeletal: No symptoms reported Skin: No symptoms reported Hematologic/Lymphatic: No symptoms reported Neurological/Psychological: No symptoms reported -: Yes All other systems reviewed and negative Physical Exam - Vital signs Vitals: Temp Pulse Resp BP Pulse Ox 98.4 F 99 18 130/83 H 96 11/23/19 11:39 11/23/19 11:39 11/23/19 11:39 11/23/19 11:39 11/23/19 11:39 - Notes Notes: Physical Exam: General: Alert, appears well. HEENT: Normocephalic. Atraumatic. PERRL. Extraocular movements intact. Oropharynx clear. Neck: Supple. Non-tender. Respiratory: No respiratory distress. Faint wheezing bilaterally. Cardiovascular: Regular rate and rhythm. Abdominal: Normal Inspection. Non-tender. No distension. Normal Bowel Sounds. Back: No gross abnormalities. Extremities: Moves all four extremities. Upper extremities: Normal inspection. Normal ROM. Lower extremities: Normal inspection. No edema. Normal ROM. Neurological: Normal cognition. AAOx4. Normal speech. Psychological: Normal affect. Normal Mood. Skin: Warm. Dry. Normal color. Course - Re-evaluation Re-evalutation: 11/23/19 14:58 The sputum the patient provided had 1+ polys and 4+ epithelial cells. This was essentially saliva and was not a sputum specimen. The chest x-ray was normal with no infiltrate, effusion, or atelectasis. The white blood cell count is elevated 22,100 with 70 segs, 1 band, 26 lymphocytes. This is most likely due to the steroids the patient has been receiving intravenously and orally over the past several days. The patient's pulse ox reading is 97% on room air with a respiratory rate of 18. She is afebrile. She is not tachycardic. Clinically she has only minimal expiratory wheeze when I have her cough. She does not appear ill and does not appear short of breath. I have explained to the patient that I do not think her current presentation warrants an admission to the hospital. - Vital Signs Vital signs: Temp Pulse Resp BP Pulse Ox 98.4 F 95 18 100/70 97 11/23/19 14:39 11/23/19 14:39 11/23/19 14:39 11/23/19 14:39 11/23/19 14:39 - Laboratory Result Diagrams: 11/23/19 13:27 11/23/19 13:27 Laboratory results interpreted by me: 11/23/19 11/23/19 13:27 13:27 WBC 22.1 H Band Neutrophils % 1 L Abs Neuts (Manual) 15.7 H Abs Lymphs (Manual) 6.0 H Alkaline Phosphatase 168 H - Diagnostic Test Radiology reviewed: Image reviewed, Reports reviewed - Chest x-ray does not show acute cardiopulmonary process. Discharge - Discharge Clinical Impression: Bronchitis Condition: Stable Disposition: HOME, SELF-CARE Additional Instructions: Bronchitis: You have acute bronchitis. This disease is an infection or inflammation of the air passageways in your lungs. Symptoms usually include cough, low grade fever, shortness of breath, and wheezing. The cough usually persists for a couple of weeks. Most cases of bronchitis get better without antibiotics. We prescribe antibiotics when we believe bacteria are damaging your airways, or if there's high risk the bronchitis will worsen into pneumonia. Increase your fluid intake. A cool mist humidifier may make your lungs more comfortable. An expectorant (cough medicine that loosens phlegm) can help. If you smoke, STOP!!! Recovery from bronchitis can be somewhat slow. Repeated episodes of bronchitis may result in lung damage -- for example, chronic bronchitis, recurrent pneumonias, or emphysema. Call the doctor if you develop increasing fever, shortness of breath, chest pain, bloody sputum, or otherwise worsen. If you have not improved at all after several days, contact the physician. Your chest x-ray today is normal with no signs of pneumonia or fluid in the lungs. Your oxygen levels by the pulse oximetry reading are normal. There is very little wheezing heard in your lungs. Your white blood cell count was elevated to 22,100 today, but that elevation is probably being caused by the high-dose steroids you have been receiving. For now you should continue taking the antibiotics you were prescribed, continue the prednisone, and use your albuterol and Brio Ellipta for wheezing as needed. Be sure to drink plenty of fluids and try to stop smoking. Follow-up with your primary care provider in the next few days for recheck. RETURN TO THE EMERGENCY ROOM IF ANY NEW OR WORSENING SYMPTOMS. Referrals: HADLEY KAM PA-C [Primary Care Provider] - Follow up in 3-5 days I personally performed the services described in the documentation, reviewed and edited the documentation which was dictated to the scribe in my presence, and it accurately records my words and actions.
--- NOTE | 2019-11-23 13:43 | RADIOLOGY REPORT (SQ) ---
EXAM DESCRIPTION: CHEST SINGLE VIEW IMAGES COMPLETED DATE/TIME: 11/23/2019 1:15 pm REASON FOR STUDY: Short of breath, wheezes, productive cough COMPARISON: 01/10/2019. EXAM PARAMETERS: NUMBER OF VIEWS: One view. TECHNIQUE: Single frontal radiographic view of the chest acquired. RADIATION DOSE: NA LIMITATIONS: None. FINDINGS: LUNGS AND PLEURA: No opacities, masses or pneumothorax. No pleural effusion. MEDIASTINUM AND HILAR STRUCTURES: No masses. Contour normal. HEART AND VASCULAR STRUCTURES: Heart normal in size. Normal vasculature. BONES: No acute findings. HARDWARE: None in the chest. Hardware in the cervical spine. OTHER: No other significant finding. IMPRESSION: NO ACUTE RADIOGRAPHIC FINDING IN THE CHEST. TECHNICAL DOCUMENTATION: JOB ID: [id number] 2010 [employer]- All Rights Reserved Reading location - IP/workstation name: [email or web address]
[2019-11-23 13:49] LABS: HEMATOCRIT 36.3 % (36.0-47.0); HEMOGLOBIN 12.1 g/dL (12.0-15.5); MEAN CORPUSCULAR HEMOGLOBIN 28.3 pg (27.0-33.4); MEAN CORPUSCULAR HGB CONC 33.5 g/dL (32.0-36.0); MEAN CORPUSCULAR VOLUME 85 fl (80-97); PLATELET COUNT 364 10^3/uL (150-450); RED BLOOD COUNT 4.28 10^6/uL (3.72-5.28); RED CELL DISTRIBUTION WIDTH 13.9 % (11.5-14.0); WHITE BLOOD COUNT 22.1 10^3/uL (4.0-10.5)
[2019-11-23 13:50] LABS: APPEARANCE,URINE CLEAR; BILIRUBIN,URINE NEGATIVE (NEGATIVE); COLOR,URINE STRAW; GLUCOSE, URINE NEGATIVE (NEGATIVE); KETONES,URINE NEGATIVE (NEGATIVE); LEUKOCYTE ESTERASE,URINE NEGATIVE (NEGATIVE); NITRITE,URINE NEGATIVE (NEGATIVE); PROTEIN,URINE NEGATIVE (NEGATIVE); URINE SPECIFIC GRAVITY 1.003; UROBILINOGEN,URINE NEGATIVE mg/dL (<2.0)
[2019-11-23 14:04] LABS: ALBUMIN 4.3 g/dL (3.5-5.0); ALKALINE PHOSPHATASE 168 U/L (38-126); ANION GAP 8 (5-19); ASPARTATE AMINO TRANSFERASE 23 U/L (14-36); BILIRUBIN,TOTAL 0.3 mg/dL (0.2-1.3); BLOOD UREA NITROGEN 11 mg/dL (7-20); CALCIUM 9.7 mg/dL (8.4-10.2); CARBON DIOXIDE 29 mmol/L (22-30); CHLORIDE 102 mmol/L (98-107); CREATINE KINASE 61 U/L (30-135); GLUCOSE 106 mg/dL (75-110); POTASSIUM 4.9 mmol/L (3.6-5.0); TOTAL PROTEIN 6.9 g/dL (6.3-8.2)
[2019-11-23 14:08] LABS: ABSOLUTE MONOCYTES # (MANUAL) 1.3 10^3/uL (0.1-1.4); BAND NEUTROPHILS % (MANUAL) 1 % (3-5); BASOPHILS % (MANUAL) 1 % (0-2); EOSINOPHILS % (MANUAL) 0 % (0-6); LYMPHOCYTES % (MANUAL) 26 % (13-45); MONOCYTES % (MANUAL) 6 % (3-13); SEGMENTED NEUTROPHILS % (MAN) 70 % (42-78); TOTAL CELLS COUNTED 100
[2019-11-23 14:09] LABS: PLATELET COMMENT ADEQUATE; RBC MORPHOLOGY COMMENT NORMO-CYTIC/CHROMIC
[2019-11-23] MEDS ORDERED: ALBUTEROL SULFATE 0.083% NEB 2.5 MG/3 ML AMPUL NEB ONE (14:15)
[2019-11-23 16:08] VITALS: BP 125/77
== END 2019-11-23 16:09 | disposition home or self-care (01) ==
LOC: ER 11:39
DX: J40 Bronchitis, not specified as acute or chronic (principal); F17.210 Nicotine dependence, cigarettes, uncomplicated; E78.00 Pure hypercholesterolemia, unspecified; J44.9 Chronic obstructive pulmonary disease, unspecified; E11.9 Type 2 diabetes mellitus without complications; Z88.3 Allergy status to other anti-infective agents
CPT/HCPCS: 94640 ×2; 99285; 36415; 87040; 87205; 82550; 85025; 80053; 81001; 71045; A9270 ×2; J7620

== ENCOUNTER → 2019-11-29 | Outpatient (CLI) | payer MEDICARE, OTHER ==
[2019-11-29 15:16] LABS: ABSOLUTE BASOPHILS # (AUTO) 0.1 10^3/uL (0.0-0.2); ABSOLUTE EOSINOPHILS # (AUTO) 0.1 10^3/uL (0.0-0.6); ABSOLUTE LYMPHOCYTES (AUTO) 2.9 10^3/uL (0.5-4.7); ABSOLUTE MONOCYTES (AUTO) 0.8 10^3/uL (0.1-1.4); ABSOLUTE NEUT (AUTO) 10.5 10^3/uL (1.7-8.2); BASOPHILS % (AUTO) 0.7 % (0-2); EOSINOPHILS % (AUTO) 0.4 % (0-6); HEMATOCRIT 37.4 % (36.0-47.0); HEMOGLOBIN 12.5 g/dL (12.0-15.5); LYMPHOCYTES % (AUTO) 20.4 % (13-45); MEAN CORPUSCULAR HEMOGLOBIN 28.4 pg (27.0-33.4); MEAN CORPUSCULAR HGB CONC 33.5 g/dL (32.0-36.0); MEAN CORPUSCULAR VOLUME 85 fl (80-97); MONOCYTES % (AUTO) 5.3 % (3-13); PLATELET COUNT 319 10^3/uL (150-450); RED BLOOD COUNT 4.42 10^6/uL (3.72-5.28); RED CELL DISTRIBUTION WIDTH 13.6 % (11.5-14.0); SEGMENTED NEUTROPHILS % (AUTO) 73.2 % (42-78); TOTAL CELLS COUNTED % (AUTO) 100 %
[2019-11-29 15:40] LABS: WHITE BLOOD COUNT 14.3 10^3/uL (4.0-10.5)
== END ==
LOC: OD 14:46
PROVIDERS: ATTEND Nurse Practitioner Family
DX: J18.9 Pneumonia, unspecified organism (principal); D72.829 Elevated white blood cell count, unspecified
CPT/HCPCS: 36415; 83605; 85025

== ENCOUNTER 2020-02-23 08:36 | Day surgery (SDC) | payer MEDICARE, OTHER ==
[~2020-02-23 08:36] MED LIST changes: +CEFAZOLIN 1 GM/D5W RTU 1 GM/50 ML RTUPB IV PRN; -CEFAZOLIN 2 GM/D5W RTU 2 GM/50 ML RTUPB IV PRN; -LACTATED RINGERS 1000 ML IV PRN; +RINGERS SOLUTION,LACTATED 1,000 ML IV PRN
[2020-02-23] MEDS ORDERED: POLYMYXIN B SULFATE INJ 500000 UNIT VIAL ONE (09:29)
[2020-02-23] MEDS ORDERED: NORMAL SALINE INJ/PF 0.9% 10 ML SDV ONE (09:29)
[2020-02-23] MEDS ORDERED: BACITRACIN INJ 50,000 UNIT VIAL ONE (09:30)
[2020-02-23] MEDS ORDERED: BUPIVACAINE INJ/PF LIPOSOME/PF 266 MG/20 ML SDV ONE (09:30)
[2020-02-23] MEDS ORDERED: ONDANSETRON HCL INJ/PF 4 MG/2 ML SDV ONE (09:32)
[2020-02-23] MEDS ORDERED: MIDAZOLAM 2 MG/2 ML INJ ONE (09:32)
[2020-02-23] MEDS ORDERED: LIDOCAINE 1%/EPINEPHRINE INJ 20 ML VIAL ONE (09:33)
[2020-02-23] MEDS ORDERED: ACETAMINOPHEN 1,000 MG/100 ML RTUPB IV ONE (09:33)
[2020-02-23] MEDS ORDERED: BUPIVACAINE HCL 0.5 % INJ/PF 30 ML SDV ONE (09:33)
[2020-02-23] MEDS ORDERED: MORPHINE SULFATE 10 MG/ML INJ ONE ×2 (09:33→11:56)
[2020-02-23] MEDS ORDERED: PROPOFOL INJ 200 MG/20 ML VIAL IV ONE (09:33)
--- NOTE | 2020-02-23 11:40 | Operative Report ---
Operative Report DATE OF SURGERY: 02/23/20 PREOPERATIVE DIAGNOSIS: Displaced internal fixation cuboid bone right foot. POSTOPERATIVE DIAGNOSIS: Displaced internal fixation at the cuboid bone right foot. OPERATION: Removal of deep buried screw and washer right foot. SURGEON: MAYITO WILSON TOBACCO SCRAP SIFTER: TATIANA ARCHIBALD ANESTHESIA: LMAC TISSUE REMOVED OR ALTERED: Screw and washer COMPLICATIONS: None ESTIMATED BLOOD LOSS: Less than 0.1 mL. INTRAOPERATIVE FINDINGS: Removal of the screw left and enlarged hole going from the cuboid into the calcaneus. PROCEDURE: Following induction of IV, regional and local anesthesia, the right foot and leg were prepped and draped in usual sterile manner. A pneumatic tourniquet was placed around the right ankle and inflated to 250 mmHg after exsanguination of the limb the Esmarch bandage. The following surgical procedure was then performed: Removal of displaced screw from the right foot. Attention was directed to the lateral aspect of the right foot. An x-ray was taken to determine the exact location of the displaced screw. An incision was made over that site and was deepened via sharp dissection, all bleeders were clamped and bovied as necessary for the purpose of hemostasis. The screw was identified and freed from soft tissue attachments. The screw was loose enough that it could be removed utilizing a combination of needle-nose pliers and hemostats. It was noted that the screw was a Lalita 50 mm x 6.5 mm cannulated screw. Another x-ray was taken to identify the location of the washer. This was then isolated and removed from the wound. The surgical site and the screw hole and tunnel were flushed with copious amounts of antibacterial saline solution. The hole that was left from the screw was filled utilizing 2 mL DBM gel putty. Capsular tissue was then coapted and maintained utilizing simple interrupted sutures of 3-0 Vicryl. The subcutaneous tissue was coapted and maintained utilizing simple interrupted sutures of 4-0 Vicryl. The skin was coaptated maintained utilizing horizontal mattress sutures of 5-0 nylon. It was then cleansed with alcohol foam and dried. A dry sterile dressing was then applied consisting of Chidi silk, 4 x 4's, conform, Kerlix, and Coban. The pneumatic tourniquet was released it was noted that all digits are warm and viable and the patient was transferred to the recovery room.
--- NOTE | 2020-02-23 11:43 | PDOC DISCHARGE SUMMARY ---
Discharge Summary-[facility] Discharge Summary: Date of admission: February 23, 2020. Date of discharge: February 23, 2020. Surgical procedure: Removal of displaced screw cuboid bone right foot. Postoperative diagnosis: Displaced internal hardware cuboid bone right foot. Surgeon: Conchis Mejias D.P.M. Access Director: Anderson Reed D.P.M. Patient was admitted to [facility] with a chief complaint of a screw coming out of the side of her foot. She had had a triple arthrodesis performed a number of years ago and now the hardware was failing. The site where the screw was protruding was very painful whenever she had to wear shoes. Patient underwent the above surgical procedure without any complications and was transferred to the recovery room. Patient was discharged with a surgical shoe postoperative instructions and an ice pack. She is given a follow-up appointment the doctor's office on February 28 at 11:15. Patient was discharged from [facility]
--- NOTE | 2020-02-23 12:30 | RADIOLOGY REPORT (SQ) ---
EXAM DESCRIPTION: NO CHG FLUORO; FOOT RIGHT 2 VIEWS IMAGES COMPLETED DATE/TIME: 02/23/2020 11:35 am REASON FOR STUDY: HARDWARE REMOVAL RIGHT FOOT COMPARISON: None. FLUOROSCOPY TIME: 5 seconds 1 Images saved to PACS LIMITATIONS: None. PROCEDURE: Hardware removal. FINDINGS: Image from fluoro documents the procedure. IMPRESSION: Hardware removal. Refer to operative note for further information. COMMENT: PQRS 6045F: Fluoroscopy time of the procedure is documented in the report. TECHNICAL DOCUMENTATION: JOB ID: [id number] 2010 [employer]- All Rights Reserved Reading location - IP/workstation name: [email or web address]
--- NOTE | 2020-02-23 12:30 | RADIOLOGY REPORT (SQ) ---
EXAM DESCRIPTION: NO CHG FLUORO; FOOT RIGHT 2 VIEWS IMAGES COMPLETED DATE/TIME: 02/23/2020 11:35 am REASON FOR STUDY: HARDWARE REMOVAL RIGHT FOOT COMPARISON: None. FLUOROSCOPY TIME: 5 seconds 1 Images saved to PACS LIMITATIONS: None. PROCEDURE: Hardware removal. FINDINGS: Image from fluoro documents the procedure. IMPRESSION: Hardware removal. Refer to operative note for further information. COMMENT: PQRS 6045F: Fluoroscopy time of the procedure is documented in the report. TECHNICAL DOCUMENTATION: JOB ID: [id number] 2010 [employer]- All Rights Reserved Reading location - IP/workstation name: [email or web address]
== END 2020-02-23 12:45 | disposition home or self-care (01) ==
LOC: SC 08:36
PROVIDERS: ATTEND Podiatrist Foot Surgery
DX: T84.223A Displacement of internal fixation device of bones of foot and toes, initial encounter (principal); Y83.8 Other surgical procedures as the cause of abnormal reaction of the patient, or of later complication, without mention of misadventure at the time of the procedure; E78.5 Hyperlipidemia, unspecified; E11.9 Type 2 diabetes mellitus without complications; K21.9 Gastro-esophageal reflux disease without esophagitis; Z88.2 Allergy status to sulfonamides; Z88.8 Allergy status to other drugs, medicaments and biological substances; Z03.818 Encounter for observation for suspected exposure to other biological agents ruled out
CPT/HCPCS: 20680; 82962; 73620; 01480; C1762; U0003; J2250; J3490 ×4; J0690; J2270; J2405; J2704; J0131; C9803; 87635; C9290

== ENCOUNTER → 2020-04-11 | Outpatient (CLI) | payer MEDICARE, OTHER ==
--- NOTE | 2020-04-11 18:05 | RADIOLOGY REPORT (SQ) ---
EXAM DESCRIPTION: L SPINE WHOLE IMAGES COMPLETED DATE/TIME: 04/11/2020 4:10 pm REASON FOR STUDY: (S32.020S)WEDGE COMPRESSION FRACTURE OF SECOND LUM VERTEBRA, SEQUELA S32.020S WED GE COMPRESSION FRACTURE OF SECOND LUM VERTEBRA, M54.5 LOW BACK PAIN COMPARISON: None. NUMBER OF VIEWS: Five views including obliques. TECHNIQUE: AP, lateral, oblique, and sacral radiographic images acquired of the lumbar spine. LIMITATIONS: None. FINDINGS: MINERALIZATION: Normal. SEGMENTATION: Normal. No transitional anatomy. ALIGNMENT: Normal. VERTEBRAE: What is compression fracture L2 with interval kyphoplasty. Similar in appearance to previ ous. DISCS: Disc space narrowing L1-2. POSTERIOR ELEMENTS: Pedicles and facets are intact. No pars defect or posterior arch defects. HARDWARE: Pedicle screws and bridging plates L4, L5, S1 with disc prostheses PARASPINAL SOFT TISSUES: Normal. PELVIS: Intact as visualized. No fractures or worrisome bone lesions. SI joints intact. OTHER: No other significant finding. IMPRESSION: Interval kyphoplasty L2. Otherwise stable appearance. TECHNICAL DOCUMENTATION: JOB ID: [id number] 2010 [employer]- All Rights Reserved Reading location - IP/workstation name: [email or web address]
== END ==
LOC: RAD 15:44
PROVIDERS: ATTEND Physician Assistant
DX: S32.020S Wedge compression fracture of second lumbar vertebra, sequela (principal); X58.XXXS Exposure to other specified factors, sequela; M54.5 Low back pain
CPT/HCPCS: 72110

== ENCOUNTER → 2020-05-03 | Outpatient (CLI) | payer MEDICARE, OTHER ==
--- NOTE | 2020-05-03 20:39 | XCELERA REPORT ---
[address] [address] Transthoracic Echocardiogram Report Name: NICHELLE MICHEL Age: 49 yrs Gender: Female : 1970 Patient Status: Outpatient Patient Location: [facility] Study Date: 05/03/2020 11:20 AM History: Murmur Height: 56 in Weight: 205 lb BSA: 1.8 m2 Procedure: A complete two-dimensional transthoracic echocardiogram was performed (2D, M-mode, spectral and color flow Doppler). The study was technically difficult with many images being suboptimal in quality. Reason For Study: SOB Previous Evaluation: A previous study was performed on 08/06/2018 LVEF 55-60%. History: Shortness of breath. Murmur. Ordering Physician: FLORES CLARKE Performed By: Pooja Covarrubias Interpretation Summary study scannd by new shona Gomez Left ventricular systolic function is normal. The right ventricle is normal in size and function. There is no mitral regurgitation noted. There is no aortic valve stenosis There is a trace amount of tricuspid regurgitation There is no pericardial effusion. MMode/2D Measurements & Calculations RVDd: 2.0 cm LVIDd: 3.3 cm FS: 38.4 % Ao root diam: 2.6 cm IVSd: 0.71 cm LVIDs: 2.0 cm EDV(Teich): Ao root area: LVPWd: 0.72 cm 44.0 ml 5.4 cm2 ESV(Teich): LA dimension: 2.0 cm 13.2 ml EF(Teich): 70.0 % EDV(MOD-sp4): SV(MOD-sp4): 43.4 ml 25.0 ml ESV(MOD-sp4): 18.5 ml EF(MOD-sp4): 57.5 % Doppler Measurements & Calculations MV E max mikie: MV dec slope: Ao V2 max: LV V1 max P.5 cm/sec 144.4 cm/sec 7.6 mmHg MV A max mikie: 241.1 cm/sec2 Ao max PG: LV V1 mean P.7 cm/sec MV dec time: 8.3 mmHg 4.6 mmHg 0.32 sec MV E/A: 1.3 Ao V2 mean: LV V1 max: 101.4 cm/sec 137.4 cm/sec Ao mean PG: LV V1 mean: 4.5 mmHg 103.8 cm/sec Ao V2 VTI: 27.4 cm LV V1 VTI: 26.1 cm PA V2 max: 107.9 cm/sec PA max P.7 mmHg Left Ventricle The left ventricle is normal in size. There is normal left ventricular wall thickness. Left ventricular systolic function is normal. The Ejection Fraction estimate is 60-65%. Doppler measurements suggest normal left ventricular diastolic function. Regional wall motion abnormalities cannot be excluded due to limited visualization. Right Ventricle The right ventricle is normal in size and function. Atria The right atrium is normal. The left atrial size is normal. The interatrial septum is intact with no evidence for an atrial septal defect. There is no Doppler evidence for an interatrial shunt. Mitral Valve The mitral valve is grossly normal. There is no mitral regurgitation noted. Aortic Valve The aortic valve is normal in structure and function. The aortic valve is trileaflet. The aortic valve opens well. There is no aortic valve stenosis. No aortic regurgitation is present. Tricuspid Valve The tricuspid valve is not well visualized secondary to technical limitations. There is a trace amount of tricuspid regurgitation. Tricuspid regurgitation jet envelope not well defined to measure RV systolic pressure accurately. Pulmonic Valve The pulmonic valve is not well visualized. There is no pulmonic valvular stenosis. There is a trace amount of pulmonic regurgitation. Effusions There is no pericardial effusion. : FLORES CLARKE Anil
== END ==
LOC: SP 11:09
PROVIDERS: ATTEND Internal Medicine
DX: R06.02 Shortness of breath (principal); I34.0 Nonrheumatic mitral (valve) insufficiency; R06.00 Dyspnea, unspecified
CPT/HCPCS: 93306